=== PATIENT | male | born 1935 | race Caucasian/White ===

== ENCOUNTER 2018-05-07 08:40 | Day surgery (SDC) | payer MEDICARE, OTHER, SELFPAY ==
--- NOTE | 2018-05-07 | PATH_ITS ---
[facility] Accession Number: [id number] . 01 Material submitted: . PART A: TRANSVERSE COLON POLYPS X3 PART B: ASCENDING COLON POLYPS X2 PART C: COLON POLYP AT 40CM X2 PART D: COLON POLYP AT 25CM X2 . 02 Diagnosis: A. Biopsy Transverse Colon Polyps: Tubular adenoma involving two biopsy fragments. Single polypoid-shaped fragment of colon mucosa associated with prominent lymphoid aggregate. . B. Biopsy Ascending Colon Polyps: Tubular adenoma involving all three biopsy fragments. . C. Biopsy Colon Polyp at 40 cm: Tubular adenoma involving multiple biopsy fragments. . D. Biopsy Colon Polyps at 25 cm: Tubular adenoma involving two biopsy fragments. Single prolapsed inflammatory polyp, negative for atypia. [facility]/05/08/2018 . 02 Electronically signed: . Chris Dorman MD, Pathologist NPI- [id number] . 01 Gross description: . Received four formalin-filled containers, each labeled with the patient's name: . A. In a container labeled #1. Transverse colon polyp, are three fragments of tissue which range in size from 0.3 cm to 0.5 cm, entirely submitted in cassette A. B. In a container labeled ascending col. polyps x2, are three 0.1-0.3 cm portions of tissue, entirely submitted in cassette B. C. In a container labeled colon polyp at 40 cm x2, are multiple 0.1 cm to 0.5 cm portions of tissue, which are filtered, wrapped, and entirely submitted in cassette C. D. In a container labeled colon polyp at 25 cm x2, are four 0.2-0.5 cm portions of tissue, entirely submitted in cassette D. ([id number]) /FRR . 02 Pathologist provided ICD-10: D12.2 . 02 CPT . 000526, 684299, 152466, [id number] Performed at: 01 [facility] [address] [id number] MD Fan Rand MD Phone: [phone] Performed at: 02 [facility] [address] [place], [place] [id number] MD Carl Shukla MD Phone: [phone]
[2018-05-07 09:10] VITALS: BP 135/84; PULSE 80; RESP 18; TEMP 36.2; O2SAT 98; BMI 33.9
[2018-05-07] MEDS: SODIUM CHLORIDE 0.9% 1,000 ML 200 ML IV (09:32)
--- NOTE | 2018-05-07 09:43 | PM.HP.1 ---
History of Present Illness Date Patient Seen: 05/07/18 Time Patient Seen: 09:43 Chief complaint: [id number] SCREENING COLONOSCOPY Narrative: The patient is a gentleman here for screening colonoscopy. His last colonoscopy was over 15 years ago. He does have a history of polyps in the distant past though he does not know the details of the pathology. He has had no blood in his stool and has no family history of colon cancer Patient History Medical History Elevated cholesterol (Chronic) Essential hypertension with goal blood pressure less than 130/85 (Chronic) Surgical History History of tonsillectomy (Resolved) Family & Social History Social History: household members spouse Meds Home Medications Medication Instructions Recorded Confirmed Type calcium carbonate-vitamin D3 See Label Instructions .ROUTE 05/07/18 05/07/18 History [Calcium 600 with Vitamin D3] .COMPLEX felodipine 2.5 mg PO BID 05/07/18 05/07/18 History losartan 50 mg PO DAILY 05/07/18 05/07/18 History simvastatin [Zocor] 5 mg PO QPM 05/07/18 05/07/18 History Allergies Allergy/AdvReac Type Severity Reaction Status Date / Time No Known Drug Allergies Allergy Verified 05/07/18 09:02 Review of Systems Review of Systems All systems reviewed & are unremarkable except as noted in HPI and below Exam Vital Signs (past 8 hours): - 05/07/18 09:10 Temperature 97.2 F L Pulse Rate 80 Respiratory Rate 18 Blood Pressure 135/84 Pulse Oximetry 98 Oxygen Delivery Method Room Air Narrative Exam Narrative: Operative no apparent distress. Lungs clear no rales or rhonchi. Heart regular rate and rhythm without murmur gallop. Abdomen was protuberant soft nontender without mass. Alert and oriented x3. Assessment & Plan Plan: Assessment/Plan Narrative: Patient for a screening colonoscopy. I have discussed the procedure and the rationale with the patient including risks of bleeding, perforation which would necessitate a major operation, failure to find remove all lesions and the potential to tattoo. They appeared to understand and wished to proceed.
--- NOTE | 2018-05-07 09:46 | PM.PREOP ---
Pre-operative Note Interval Note Pre-op Check: Yes History & Physical exam performed today by Physician Changes: No ASA Class (for procedural sedation): II
[2018-05-07] MEDS: MIDAZOLAM 5 MG/5 ML VIAL IV (10:17)
[2018-05-07] MEDS: fentaNYL 250 MCG/5 ML INJ IV (10:18)
--- NOTE | 2018-05-07 10:49 | PM.OP.ENDO ---
Operative Date/Time/Diagnoses Date of procedure: 05/07/18 Time of procedure: 10:41 Pre-op diagnosis: Distant history of polyps. Screening exam. Last exam was over 15 years ago. Post-op diagnosis: same (Numerous polyps. Sigmoid diverticulosis.) Procedure & Clinicians Study performed: Colonoscopy with cold biopsy and hot snare polypectomies multiple Same procedure as scheduled: Yes Indications: Screening Surgeon: Aramis Phipps Procedure Notes SCOAP/Timeout: Performed Procedure in detail: The patient was placed in the left lateral decubitus position and underwent IV sedation directed by the surgeon consisting of fentanyl and Versed. Digital exam was unremarkable. I felt no enlargement of his prostate and no masses in it. The scope was inserted and advanced through the rectum into the sigmoid colon. The patient had diverticulosis. There was a small polyp noted on the way in that was in the transverse colon and it was snared and completely removed. I continued on into the descending, transverse, and ascending colon. The cecum was reached identified by the ileocecal valve and the appendiceal opening. The scope was gradually brought out. I encountered 2 additional Polyps at[the transverse colon. Two removed in the ascending colon. Two removed at 40 cm. And 2 were removed at 25 cm from the anal verge. With 1 or 2 exceptions all of these were snared with a hot snare. The others were removed with cold biopsy forceps. I ultimately reached the rectum]. The scope was retroflexed in the rectum. The appearance was[normal in appearance]. The scope was removed and the patient tolerated the procedure well. While the patient had numerous polyps none appeared to be malignant though most if not all of them appeared to be neoplastic. Await the pathology report. Scope withdrawal time: 35 min Sedation minutes: 51 Findings: diverticulosis (Sigmoid) and polyp (Nine polyps removed) Specimen(s): other (Polyps) Complications: none Recommendations: Colonscopy in 5 years (If in good health) Follow up: as needed Disposition: PACU
[2018-05-07 10:54] VITALS: BP 130/74; PULSE 62; RESP 20; TEMP 36.4; O2SAT 98
== END 2018-05-07 11:17 | disposition home or self-care (01) ==
PROVIDERS: Visit Provider Specialist
PROC: 0DJD8ZZ Inspection of Lower Intestinal Tract, Via Natural or Artificial Opening Endoscopic (ICD-10-PCS; CPT 45378; principal; 2018-05-07 09:45)
DX: Z12.11 Encounter for screening for malignant neoplasm of colon (principal); Z86.010 Personal history of colon polyps; E78.00 Pure hypercholesterolemia, unspecified; I10 Essential (primary) hypertension; D12.2 Benign neoplasm of ascending colon; D12.3 Benign neoplasm of transverse colon; K57.30 Diverticulosis of large intestine without perforation or abscess without bleeding
CPT/HCPCS: 45385; 45380; 88305; 99152; 99153; J2250; J3010

== ENCOUNTER → 2020-11-08 15:52 | Outpatient (CLI) | payer MEDICARE, OTHER, SELFPAY ==
[2020-11-08] MEDS: COVID-19 VACC, Ad26(JANSSEN)/PF 0.5 ML IM (16:02)
== END ==
PROVIDERS: Visit Provider Internal Medicine
DX: Z23 Encounter for immunization (principal)
CPT/HCPCS: 0031A; 91303

== ENCOUNTER → 2021-11-10 16:16 | Outpatient (CLI) | payer MEDICARE, OTHER, SELFPAY ==
--- NOTE | 2021-11-10 | DI.RAD.S_ITS ---
PROCEDURE: XR HIP W PEL IF DONE RT 2V INDICATIONS: PAIN TECHNIQUE: AP pelvis with lateral view(s) of the right hip(s). COMPARISON: None. FINDINGS: Bones: No fractures or dislocations. Symmetric appearing [id number] bilateral hip joint osteoarthritic changes are noted. No evidence of avascular necrosis of femoral head. Pelvic ring appears intact. No suspicious bony lesions. Soft tissues: The visualized bowel gas pattern is normal. Well corticated calcification adjacent to greater trochanter of right proximal femur is noted suggestive of old avulsion injury. IMPRESSION: Symmetric appearing bilateral hip joint osteoarthritis. No pelvic or hip fracture. No evidence of avascular necrosis. Dictated by: Spencer Hernandez M.D. on 11/10/2021 at 16:42 Approved by: Spencer Hernandez M.D. on 11/10/2021 at 16:43
--- NOTE | 2021-11-10 | DI.RAD.S_ITS ---
PROCEDURE: XR LUMBAR SPINE 2-3V INDICATIONS: PAIN TECHNIQUE: 3 views of the lumbar spine were acquired. COMPARISON: None. FINDINGS: Bones: 5 [id number] vertebrae are present. There is straightening of normal lumbar lordosis. Grade 1 retrolisthesis of L3 on L4 is seen. Degenerative endplate changes, loss of disc height and bilateral facet arthrosis throughout lumbar spine is seen. No vertebral body compression fractures. No suspicious bony lesions. Soft tissues: Overlying bowel gas pattern is normal. No suspicious soft tissue calcifications. IMPRESSION: Degenerative disc disease throughout lumbar spine. No acute compression fracture . Grade 1 retrolisthesis of L3 on L4. Dictated by: Spencer Hernandez M.D. on 11/10/2021 at 16:43 Approved by: Spencer Hernandez M.D. on 11/10/2021 at 16:44
== END ==
PROVIDERS: Referring Provider Family Medicine; Visit Provider Family Medicine
DX: M16.0 Bilateral primary osteoarthritis of hip (principal); M51.36 Other intervertebral disc degeneration, lumbar region; M25.551 Pain in right hip; M54.50 Low back pain, unspecified
CPT/HCPCS: 72100; 73502

== ENCOUNTER → 2023-01-03 14:27 | Outpatient (CLI) | payer MEDICARE, OTHER, SELFPAY ==
--- NOTE | 2023-01-03 | DI.RAD.S_ITS ---
PROCEDURE: XR CHEST 2V INDICATIONS: CHEST PAIN / COUGH TECHNIQUE: 2 views of the chest were acquired. COMPARISON: [facility], , CHEST 2 VIEW, 08/09/2015, 12:23. FINDINGS: Surgical changes and devices: None. Lungs and pleura: Mild patchy opacity left lung base. No pleural effusion or pneumothorax. Mediastinum: Mediastinal contours are normal. Heart size is normal. Bones and chest wall: No suspicious bony abnormalities. Soft tissues appear unremarkable. IMPRESSION: Nonspecific left basilar opacity may represent atelectasis, aspiration, or pneumonia. Dictated by: Westley Parker M.D. on 01/03/2023 at 18:18 Approved by: Westley Parker M.D. on 01/03/2023 at 18:20
== END ==
PROVIDERS: Referring Provider Internal Medicine; Visit Provider Internal Medicine
DX: R07.9 Chest pain, unspecified (principal); R05.9 Cough, unspecified
CPT/HCPCS: 71046; 93005

== ENCOUNTER → 2023-02-01 11:49 | Outpatient (CLI) | payer MEDICARE, OTHER, SELFPAY ==
--- NOTE | 2023-02-01 | DI.RAD.S_ITS ---
PROCEDURE: XR CHEST 2V INDICATIONS: Bronchopneumonia, unspecified organism TECHNIQUE: 2 views of the chest were acquired. COMPARISON: [facility], CR, XR CHEST 2V, 01/03/2023, 14:34. FINDINGS: Surgical changes and devices: None. Lungs and pleura: Left lower lobe opacity may be infiltrate, scar or atelectasis. No pleural effusions or pneumothorax. Mediastinum: Mediastinal contours are normal. Heart size is normal. Bones and chest wall: No suspicious bony abnormalities. Soft tissues appear unremarkable. IMPRESSION: Left lower lobe infiltrate, scar or atelectasis. Dictated by: Serg Mckinnon M.D. on 02/01/2023 at 13:38 Approved by: Serg Mckinnon M.D. on 02/01/2023 at 13:58
== END ==
PROVIDERS: PCP Family Medicine; Referring Provider Family Medicine; Visit Provider Family Medicine
DX: J18.0 Bronchopneumonia, unspecified organism (principal)
CPT/HCPCS: 71046

== ENCOUNTER → 2023-02-08 10:49 | Outpatient (CLI) | payer MEDICARE, OTHER, SELFPAY ==
--- NOTE | 2023-02-08 | DI.CT.S_ITS ---
PROCEDURE: CT CHEST ABD PEL W CON INDICATIONS: WEIGHT LOSS TECHNIQUE: After the administration of oral and intravenous contrast, axial sections acquired from the supraclavicular neck to the pubic symphysis. Coronal and sagittal reformats were performed. For radiation dose reduction, the following was used: automated exposure control, adjustment of mA and/or kV according to patient size. COMPARISON: None. FINDINGS: Image quality: Excellent. CHEST: Lower Neck: No enlarged lymph nodes. Thyroid: Within normal limits. Axillae: No enlarged lymph nodes. Chest Wall: Unremarkable. Lungs and Airways: Scattered calcified granuloma. No consolidation. Pleura: No pneumothorax or pleural effusions. Heart: Heart size is normal. No pericardial effusion. Thoracic Vessels: The aorta and pulmonary arteries demonstrate normal size. Mediastinum and [place]: No enlarged lymph nodes. Esophagus: No wall thickening. No hiatal hernia. ABDOMEN: Liver: Hepatic cysts. Focus of hyperattenuation along the gallbladder fossa, probably focal fat sparing. Gallbladder: Cholelithiasis without wall thickening or adjacent fat stranding to suggest acute cholecystitis. Biliary ducts: Unremarkable. Pancreas: Unremarkable. Spleen: The spleen is massive, measuring 18.0 x 11 x 16.0 centimeter. Along the periphery of the spleen, there is a 6.7 centimeter region of wedge-shaped hypoattenuation. Adrenal Glands: Unremarkable. Kidneys and Ureters: Unremarkable. Stomach and Bowel: Stomach, small bowel loops, and colon are unremarkable. Peritoneum: No abnormal intraperitoneal fluid. No free air. Ventral Wall: No hernia. Abdominal Nodes: No retroperitoneal or mesenteric adenopathy by size criteria. Vessels: Aorta and inferior vena cava are normal in size. PELVIS: Pelvic Organs: Unremarkable. Bladder: Unremarkable. Pelvic Nodes: No enlarged lymph nodes. Miscellaneous: Fat within the left inguinal canal. Bones: Age indeterminate transverse fracture through the middle vertebral body of L1. IMPRESSION: 1. Massive splenomegaly, measuring 1867 milliliter (normal 315 milliliter). Associated peripheral infarcts. Findings are highly concerning for lymphoma. 2. Age indeterminate transverse fracture through the middle vertebral body of L1, likely incomplete burst fracture. No endplate retropulsion. Correlate with history of trauma. Dictated by: Maxwell Parekh M.D. on 02/08/2023 at 15:35 Approved by: Maxwell Parekh M.D. on 02/08/2023 at 15:40
[2023-02-08 11:22] LABS: Hematocrit 33.2 % (41-53); Hemoglobin 11.1 g/dL (13.5-17.5); Mean Corpuscular HGB Conc 33.6 % (30-36); Mean Corpuscular Hemoglobin 26.7 PG (26-34); Mean Corpuscular Volume 79.6 fL (80-100); Platelet Count 38 X10^3/uL (150-400); Red Blood Cell Count 4.17 X10^6/uL (4.5-5.9); Red Cell Distribution Width 18.3 % (11.6-14.8); White Blood Cell Count 4.5 X10^3/uL (4.5-11.0)
[2023-02-08 11:30] LABS: Alanine Aminotransferase 26 IU/L (<50); Albumin 2.6 g/dL (3.5-5.0); Albumin Globulin Ratio 0.8 (1.0-2.8); Alkaline Phosphatase 471 U/L (38-126); Amylase 72 U/L (30-110); Aspartate Aminotransferase 70 IU/L (17-59); BUN Creatinine Ratio 25.2 (6-22); Bilirubin Total 1.5 mg/dL (0.2-1.3); Blood Urea Nitrogen 35 mg/dL (9-20); Calcium 7.5 mg/dL (8.4-10.2); Carbon Dioxide 22 mmol/L (22-32); Chloride 106 mmol/L (98-107); Estimated Glomerular Filt Rate 49 mL/min (>60); Globulin 3.1 g/dL (1.7-4.1); Glucose 96 mg/dL (80-110); HEMOLYSIS < 15 (0-50); Lipase 126 U/L (23-300); Potassium 3.5 mmol/L (3.4-5.1); Sodium 136 mmol/L (137-145); Total Protein 5.7 g/dL (6.3-8.2)
[2023-02-08 11:31] LABS: Add Manual Diff / Slide Review YES
[2023-02-08 11:53] LABS: Neutrophils Absolute Manual 2700 /uL (3000-5900); Total Cells Counted 100
[2023-02-08 11:54] LABS: Anisocytosis 1+; Platelet Estimate Decreased on smear; Target Cells 1+
[2023-02-08 12:26] LABS: Free T4, Direct Thyroxine 1.42 ng/dL (0.78-2.19)
[2023-02-09 08:41] LABS: T4 Total Thyroxine 6.87 ug/dL (5.5-11.0); T7 (Free Thyroxine Index) 3.26 (1.65-3.89); Triiodothryronine T3 Uptake 47.4 % (23.5-40.5)
== END ==
PROVIDERS: PCP Family Medicine; Referring Provider Family Medicine; Visit Provider Family Medicine
DX: R07.9 Chest pain, unspecified (principal); K76.0 Fatty (change of) liver, not elsewhere classified; J15.9 Unspecified bacterial pneumonia; K80.20 Calculus of gallbladder without cholecystitis without obstruction; M48.46XA Fatigue fracture of vertebra, lumbar region, initial encounter for fracture; R16.1 Splenomegaly, not elsewhere classified; R63.4 Abnormal weight loss; Z79.899 Other long term (current) drug therapy
CPT/HCPCS: 36415; 71260; 74177; 80053; 82150; 83690; 84436; 84439; 84443; 84479; 85007; 85025; Q9967

== ENCOUNTER 2023-02-12 13:45 | Emergency (ER) | payer MEDICARE, OTHER, SELFPAY ==
[2023-02-12] VITALS (77 sets, daily range): BP systolic 87–127; BP diastolic 48–66; PULSE 70–122; RESP 18–41; TEMP 34.7–39.3; O2SAT 69–99; BMI 23.1
--- NOTE | 2023-02-12 13:55 | PC.NURSE ---
1355: Per EMS, pt POC glucose 48 at home. Gave approx 125ml D10. POC glucose on arrival to ED=86.
--- NOTE | 2023-02-12 14:09 | DI.RAD.S_ITS ---
PROCEDURE: XR CHEST 1V INDICATIONS: suspected sepsis TECHNIQUE: One view of the chest was acquired. COMPARISON: [facility], CR, XR CHEST 2V, 02/01/2023, 11:47. FINDINGS: Surgical changes and devices: None. Lungs and pleura: Lungs are clear. No pleural effusions or pneumothorax. Mediastinum: Mediastinal contours appear normal. Heart size is normal. Bones and chest wall: No suspicious bony lesions. Overlying soft tissues appear unremarkable. IMPRESSION: No acute pulmonary process. Dictated by: Nina Medellin M.D. on 02/12/2023 at 15:17 Approved by: Nina Medellin M.D. on 02/12/2023 at 15:17
--- NOTE | 2023-02-12 14:10 | DI.CT.S_ITS ---
PROCEDURE: CT HEAD/BRAIN WO CON INDICATIONS: trauma, right hip pain TECHNIQUE: Noncontrast 4.5 mm thick angled axial sections acquired from the foramen magnum to the vertex, with coronal and sagittal reformats. For radiation dose reduction, the following was used: automated exposure control, adjustment of mA and/or kV according to patient size. COMPARISON: None. FINDINGS: Image quality: Excellent. CSF spaces: Basal cisterns are patent. No extra-axial fluid collections. The ventricles are symmetric in size and shape. Brain: No intracranial bleeds or masses. There is cerebral volume loss for age, with resultant ventricular and sulcal prominence. There are periventricular and deep white matter chronic small vessel ischemic changes. There is intracranial internal carotid artery atherosclerosis. Skull and face: Calvarium and visualized facial bones appear intact, without suspicious lesions. Sinuses: Visualized sinuses and mastoids are clear. IMPRESSION: 1. No acute intracranial process. 2. Moderate atrophy and chronic microvascular ischemic changes. Dictated by: Nina Medellin M.D. on 02/12/2023 at 15:01 Approved by: Nina Medellin M.D. on 02/12/2023 at 15:02
--- NOTE | 2023-02-12 14:10 | DI.RAD.S_ITS ---
PROCEDURE: XR HIP W PEL IF DONE RT 2V INDICATIONS: trauma, right hip pain TECHNIQUE: AP pelvis with lateral view(s) of the right hip(s). COMPARISON: [facility], , XR HIP W PEL IF DONE RT 2V, 11/10/2021, 16:12. FINDINGS: Bones: No fractures or dislocations. Pelvic ring appears intact. No suspicious bony lesions. Soft tissues: The visualized bowel gas pattern is normal. No suspicious soft tissue calcifications. Right hip calcific tendinitis is present. IMPRESSION: No visualized acute fracture or dislocation. However, if clinical concern and/or pain persist, short interval imaging followup in 7-10 days is recommended, as occult injury cannot be definitively excluded. Dictated by: Nina Medellin M.D. on 02/12/2023 at 15:18 Approved by: Nina Medellin M.D. on 02/12/2023 at 15:18
--- NOTE | 2023-02-12 14:10 | DI.CT.S_ITS ---
PROCEDURE: CT CERVICAL SPINE WO CON INDICATIONS: trauma, right hip pain TECHNIQUE: Noncontrast 3 mm thick sections acquired from the skull base to the T4 level. Sagittal and coronal reformats were then constructed. For radiation dose reduction, the following was used: automated exposure control, adjustment of mA and/or kV according to patient size. COMPARISON: None. FINDINGS: Image quality: Excellent. Bones: No fractures or dislocations. Visualized superior ribs are intact. Multilevel degenerative changes are present. Multilevel bridging anterior osteophytes are present. Soft tissues: Prevertebral soft tissues are normal in thickness. No paravertebral hematomas. No apical pneumothoraces. IMPRESSION: Multilevel degenerative changes without visualized fracture. Dictated by: Nina Medellin M.D. on 02/12/2023 at 15:02 Approved by: Nina Medellin M.D. on 02/12/2023 at 15:03
[2023-02-12 14:21] LABS: INR 1.8 (0.9-1.3); Prothrombin Time 20.4 SECONDS (10.1-12.7)
[2023-02-12 14:24] LABS: Hematocrit 34.6 % (41-53); Hemoglobin 11.1 g/dL (13.5-17.5); Mean Corpuscular Hemoglobin 26.6 PG (26-34); Mean Corpuscular Volume 82.9 fL (80-100); PTT Partial Thromboplastin Tim 32 SECONDS (26-36); Red Blood Cell Count 4.17 X10^6/uL (4.5-5.9); Red Cell Distribution Width 19.4 % (11.6-14.8)
[2023-02-12 14:27] LABS: Albumin 2.4 g/dL (3.5-5.0); Albumin Globulin Ratio 0.8 (1.0-2.8); Alkaline Phosphatase 268 U/L (38-126); Aspartate Aminotransferase 104 IU/L (17-59); BUN Creatinine Ratio 21.1 (6-22); Bilirubin Total 1.7 mg/dL (0.2-1.3); Blood Urea Nitrogen 67 mg/dL (9-20); Calcium 7.2 mg/dL (8.4-10.2); Chloride 111 mmol/L (98-107); Creatine Kinase 26 U/L (55-170); Estimated Glomerular Filt Rate 18 mL/min (>60); Globulin 3.1 g/dL (1.7-4.1); Glucose 97 mg/dL (80-110); Lipase 228 U/L (23-300); Potassium 4.1 mmol/L (3.4-5.1); Sodium 142 mmol/L (137-145); Total Protein 5.5 g/dL (6.3-8.2)
[2023-02-12 14:29] LABS: Add Manual Diff / Slide Review YES; Lactate (Lactic Acid) 10.8 mmol/L (0.7-2.1)
[2023-02-12 14:33] LABS: Alanine Aminotransferase 46 IU/L (<50); HEMOLYSIS 18 (0-50)
--- NOTE | 2023-02-12 14:37 | DI.CT.S_ITS ---
PROCEDURE: CT CHEST ABD PEL WO CON INDICATIONS: Fall/trauma TECHNIQUE: After the administration of oral contrast, 5 mm thick sections acquired from the lung apices to the symphysis pubis. 5 mm thick coronal and sagittal reformats acquired, with additional 7 mm coronal MIP reformats through the lungs. For radiation dose reduction, the following was used: automated exposure control, adjustment of mA and/or kV according to patient size. COMPARISON: [facility], CT, CT CHEST ABD PEL W CON, 02/08/2023, 12:37. FINDINGS: Image quality: Excellent. CHEST: Lungs and pleura: No acute pulmonary opacities. No pleural effusions or pneumothorax. Central and peripheral airways are patent are normal in caliber. Multiple bilateral pulmonary nodules, some demonstrating partial calcification are unchanged. Mediastinum: Heart size is normal. No pericardial effusion. No mediastinal adenopathy by CT size criteria. Thoracic aorta and central pulmonary arteries are normal in size. Esophagus is normal in caliber. No hiatal hernia. Chest wall: No axillary or supraclavicular adenopathy by size criteria. Thyroid gland is unremarkable . ABDOMEN: Solid organs: Liver is normal in size. Multiple simple hepatic cysts are stable. Hepatic steatosis is present. Gallbladder demonstrates small dependent luminal calcifications without wall thickening, unchanged . Pancreas is normal in contours. Spleen remains markedly enlarged with areas of low attenuation, unchanged. No adrenal nodules. Both kidneys are normal in size, without hydronephrosis or nephrolithiasis. Peritoneum and bowel: Small and large bowel loops are normal in caliber and wall thickness. No free fluid or air. Nodes and vessels: No retroperitoneal or mesenteric adenopathy by size criteria. Aorta and inferior vena cava are normal in size. Miscellaneous: No ventral hernias. PELVIS: Genitourinary: Bladder wall thickness is normal. Miscellaneous: Fat containing inguinal hernias are present. Bones: No suspicious bony lesions. Unchanged appearance of L1 fracture. IMPRESSION: No acute osseous or visceral traumatic injury. Appearance of L1 fracture is unchanged compared to prior exam and otherwise indeterminate in age. Unchanged appearance of marked splenomegaly with areas of low attenuation. The latter are better delineated on prior exam of 02/08/2023. Dictated by: Nina Medellin M.D. on 02/12/2023 at 15:03 Approved by: Nina Medellin M.D. on 02/12/2023 at 15:12
[2023-02-12 14:39] LABS: Carbon Dioxide 8 mmol/L (22-32); NT-proBNP (BNP-Adult 18+) 5770 pg/mL (<450); Troponin I 0.014 ng/mL (0.01-0.034)
[2023-02-12 14:43] LABS: Procalcitonin 3.05 ng/mL (<0.5)
[2023-02-12 14:45] LABS: Neutrophils Absolute Manual 8030 /uL (3000-5900); Total Cells Counted 100
[2023-02-12 14:46] LABS: Anisocytosis 1+; Nucleated Red Blood Cells 1 #/Diff; Platelet Estimate Decreased on smear; Poikilocytosis 1+
[2023-02-12 14:48] LABS: Platelet Count 23 X10^3/uL (150-400)
--- NOTE | 2023-02-12 15:04 | ED_ITS ---
HPI - Fall <Nathan Chi MD - Last Filed: 02/13/23 07:21> General Chief Complaint: Fall Stated Complaint: Fall, R hip px, low glucose @ 48 Time Seen by Provider: 02/12/23 14:33 Source: patient Mode of arrival: EMS History of Present Illness HPI Narrative: Patient brought in by ambulance from home for complaints of generalized weakness weight loss and fall. Patient fell today trying to go to the bathroom. He was home alone. Family return to find him on the floor. Complains of right hip pain. Patient has had a 40 lb weight loss in the past 2 months. Primary care started seeing him this month. CT imaging blood work done on February 08. CT imaging chest abdomen pelvis concerning for lymphoma. Laboratory studies concerning for thrombocytopenia. Patient has had very little oral intake for the past 2 weeks. Feeling weak and tired and dehydrated. Has decreased urine output. Denies any chest pain or dyspnea Related Data Home Medications Medication Instructions Recorded Confirmed calcium carbonate 600 mg-vitamin See Rx Instructions .Route .COMPLEX 05/07/18 05/07/18 D3 10 mcg (400 unit) capsule (Calcium 600 with Vitamin D3) felodipine 2.5 mg tablet,extended 2.5 mg PO BID 05/07/18 05/07/18 release 24 hr losartan 50 mg tablet 50 mg PO DAILY 05/07/18 05/07/18 simvastatin 10 mg tablet (Zocor) 5 mg PO QPM 05/07/18 05/07/18 Allergies Allergy/AdvReac Type Severity Reaction Status Date / Time No Known Drug Allergies Allergy Verified 05/07/18 09:02 Review of Systems <Nathan Chi MD - Last Filed: 02/13/23 07:21> Review of Systems Narrative: GENERAL: negative chills, positive fatigue, malaise, and weight loss, negative fever, sweats. HEENT: negative sinus pain, ear pain, sore throat RESPIRATORY: negative dyspnea, cough CARDIOVASCULAR: negative chest pain, palpitations GASTROINTESTINAL: negative nausea, vomiting, abdominal pain : negative dysuria, frequency, hematuria MUSCULOSKELETAL: Positive muscle or bony pain SKIN: negative rash, skin lesions NEUROLOGIC: negative weakness, numbness ROS Unobtainable: All systems reviewed & are unremarkable except as noted in HPI and below Patient History <Nathan Chi MD - Last Filed: 02/13/23 07:21> Medical History Elevated cholesterol Essential hypertension with goal blood pressure less than 130/85 Surgical History History of tonsillectomy Social History household members: spouse Smoking Status: Former smoker Smoking Status: Former smoker alcohol intake frequency: a few times a month Substance Use Type: does not use Exam <Nathan Chi MD - Last Filed: 02/13/23 07:21> Narrative Exam Narrative: GENERAL: in no distress, not toxic not dyspneic HEAD: Normocephalic. EYES: Pupils equal round, pale conjunctiva ENT: Mucous membranes moist. NECK: Trachea midline. CARDIOVASCULAR: Regular rate and rhythm without murmurs RESPIRATORY: Clear to auscultation. Breath sounds equal bilaterally. No wheezes, rales, or rhonchi. GASTROINTESTINAL: Abdomen soft, non-tender EXTREMITIES: No gross deformities. Tenderness to the right hip. No shortening or rotation of the right leg. BACK: No flank tenderness. NEURO: AOx4. SKIN: Warm and dry PSYCH: Not anxious, is cooperative Initial Vital Signs Initial Vital Signs: Vital Signs Pulse Rate 120 H 02/12/23 13:52 Blood Pressure 124/60 02/12/23 13:52 Pulse Oximetry 92 02/12/23 13:52 <Pietro Merritt DO - Last Filed: 02/13/23 01:47> Initial Vital Signs Initial Vital Signs: Vital Signs Pulse Rate 120 H 02/12/23 13:52 Blood Pressure 124/60 02/12/23 13:52 Pulse Oximetry 92 02/12/23 13:52 Course <Nathan Chi MD - Last Filed: 02/13/23 07:21> Orders Ordered: Discontinued Medications Acetaminophen (Acetaminophen 325 Mg Tablet) 975 mg PO NOW ONE Stop: 02/12/23 14:37 Last Admin: 02/12/23 15:32 Dose: 975 mg Documented By: Sodium Chloride (Normal Saline 0.9%) 1,000 mls @ 1,000 mls/hr IV BOLUS ONE Stop: 02/12/23 15:08 Last Infusion: 02/12/23 16:30 Dose: 0 mls/hr Documented By: Admin: 02/12/23 15:27 Dose: 1,000 mls/hr Documented By: Piperacillin Sod/Tazobactam (Sod 4.5 gm/ Sodium Chloride) 100 mls @ 200 mls/hr IV NOW ONE Stop: 02/12/23 14:35 Last Infusion: 02/12/23 15:56 Dose: 0 mls/hr Documented By: Admin: 02/12/23 15:26 Dose: 200 mls/hr Documented By: Sodium Bicarbonate 100 meq/ (Dextrose) 1,100 mls @ 150 mls/hr IV CONT ZEV Last Infusion: 02/12/23 23:32 Dose: 0 mls/hr Documented By: Infusion: 02/12/23 23:00 Dose: 0 mls/hr Documented By: Admin: 02/12/23 15:59 Dose: 150 mls/hr Documented By: WERNER Piperacillin Sod/Tazobactam (Sod 3.375 gm/ Sodium Chloride) 100 mls @ 25 mls/hr IV Q8H ZEV Piperacillin Sod/Tazobactam (Sod 3.375 gm/ Sodium Chloride) 100 mls @ 25 mls/hr IV Q12H ZEV Piperacillin Sod/Tazobactam (Sod 3.375 gm/ Sodium Chloride) 100 mls @ 25 mls/hr IV Q8H ZEV Last Infusion: 02/13/23 01:31 Dose: 0 mls/hr Documented By: Admin: 02/12/23 22:06 Dose: 25 mls/hr Documented By: POTASSIUM CHLORIDE IN WATER (Potassium Cl 10 Meq/100 Ml Yasmin) 10 meq in 100 mls @ 100 mls/hr IV Q1H ZEV Stop: 02/13/23 01:14 Last Infusion: 02/13/23 01:32 Dose: 0 mls/hr Documented By: Admin: 02/13/23 00:57 Dose: 100 mls/hr Documented By: Infusion: 02/13/23 00:57 Dose: 100 mls/hr Documented By: Admin: 02/13/23 00:03 Dose: 100 mls/hr Documented By: Infusion: 02/12/23 23:59 Dose: 100 mls/hr Documented By: Admin: 02/12/23 22:59 Dose: 100 mls/hr Documented By: Infusion: 02/12/23 22:52 Dose: 0 mls/hr Documented By: Admin: 02/12/23 21:44 Dose: 100 mls/hr Documented By: Calcium Gluconate 4.65 meq/ (Sodium Chloride) 60 mls @ 180 mls/hr IV NOW ONE Stop: 02/12/23 21:32 Last Infusion: 02/12/23 22:03 Dose: 0 mls/hr Documented By: Admin: 02/12/23 21:33 Dose: 180 mls/hr Documented By: Sodium Chloride (Normal Saline 0.9%) 500 mls @ 500 mls/hr IV BOLUS ONE Stop: 02/12/23 22:13 Last Infusion: 02/12/23 22:07 Dose: 0 mls/hr Documented By: Admin: 02/12/23 21:29 Dose: 500 mls/hr Documented By: Sodium Chloride (Normal Saline 0.9%) 1,000 mls @ 500 mls/hr IV BOLUS ONE Stop: 02/13/23 02:47 Last Infusion: 02/13/23 01:32 Dose: 0 mls/hr Documented By: Admin: 02/13/23 00:53 Dose: 500 mls/hr Documented By: ROX Ondansetron HCl (Ondansetron 4 Mg/2 Ml Inj) 4 mg IV NOW PRN PRN Reason: Nausea And Vomiting Last Admin: 02/12/23 15:26 Dose: 4 mg Documented By: Ondansetron HCl (Ondansetron 4 Mg Odt) 4 mg SL NOW PRN PRN Reason: Nausea And Vomiting Vital Signs Vital signs: Vital Signs - 8 hr 02/12/23 23:30 02/12/23 23:30 02/12/23 23:45 Temperature 94.8 F L Pulse Rate 72 Respiratory Rate 24 Blood Pressure 90/49 L 87/59 L Pulse Oximetry 95 02/12/23 23:45 02/13/23 00:00 02/13/23 00:00 Temperature 94.8 F L 94.8 F L Pulse Rate 74 74 Respiratory Rate 23 28 H Blood Pressure 108/52 L Pulse Oximetry 96 96 02/13/23 00:15 02/13/23 00:15 02/13/23 00:30 Temperature 95.0 F L Pulse Rate 81 Respiratory Rate 28 H Blood Pressure 98/51 L 93/52 L Pulse Oximetry 96 02/13/23 00:30 02/13/23 00:45 02/13/23 00:45 Temperature 95.0 F L 95.2 F L Pulse Rate 89 98 H Respiratory Rate 31 H 31 H Blood Pressure 80/44 L Pulse Oximetry 96 92 02/13/23 00:46 02/13/23 00:46 02/13/23 01:00 Temperature 95.2 F L Pulse Rate 90 Respiratory Rate 29 H Blood Pressure 86/48 L 91/48 L Pulse Oximetry 96 02/13/23 01:00 02/13/23 01:15 02/13/23 01:15 Temperature 95.2 F L 95.2 F L Pulse Rate 74 89 Respiratory Rate 28 H 25 H Blood Pressure 90/49 L Pulse Oximetry 96 98 02/13/23 01:30 02/13/23 01:30 02/13/23 01:31 Temperature 95.4 F L Pulse Rate 97 H Respiratory Rate 28 H Blood Pressure 95/53 L 90/52 L Pulse Oximetry 98 02/13/23 01:31 02/13/23 01:42 Temperature 95.4 F L 95.7 F L Pulse Rate 99 H 79 Respiratory Rate 30 H 32 H Blood Pressure 90/52 L Pulse Oximetry 98 <Pietro Merritt DO - Last Filed: 02/13/23 01:47> Orders Ordered: Discontinued Medications Acetaminophen (Acetaminophen 325 Mg Tablet) 975 mg PO NOW ONE Stop: 02/12/23 14:37 Last Admin: 02/12/23 15:32 Dose: 975 mg Documented By: Sodium Chloride (Normal Saline 0.9%) 1,000 mls @ 1,000 mls/hr IV BOLUS ONE Stop: 02/12/23 15:08 Last Infusion: 02/12/23 16:30 Dose: 0 mls/hr Documented By: Admin: 02/12/23 15:27 Dose: 1,000 mls/hr Documented By: Piperacillin Sod/Tazobactam (Sod 4.5 gm/ Sodium Chloride) 100 mls @ 200 mls/hr IV NOW ONE Stop: 02/12/23 14:35 Last Infusion: 02/12/23 15:56 Dose: 0 mls/hr Documented By: Admin: 02/12/23 15:26 Dose: 200 mls/hr Documented By: Sodium Bicarbonate 100 meq/ (Dextrose) 1,100 mls @ 150 mls/hr IV CONT ZEV Last Infusion: 02/12/23 23:32 Dose: 0 mls/hr Documented By: Infusion: 02/12/23 23:00 Dose: 0 mls/hr Documented By: Admin: 02/12/23 15:59 Dose: 150 mls/hr Documented By: KM Piperacillin Sod/Tazobactam (Sod 3.375 gm/ Sodium Chloride) 100 mls @ 25 mls/hr IV Q8H ZEV Piperacillin Sod/Tazobactam (Sod 3.375 gm/ Sodium Chloride) 100 mls @ 25 mls/hr IV Q12H ZEV Piperacillin Sod/Tazobactam (Sod 3.375 gm/ Sodium Chloride) 100 mls @ 25 mls/hr IV Q8H ZEV Last Infusion: 02/13/23 01:31 Dose: 0 mls/hr Documented By: Admin: 02/12/23 22:06 Dose: 25 mls/hr Documented By: POTASSIUM CHLORIDE IN WATER (Potassium Cl 10 Meq/100 Ml Yasmin) 10 meq in 100 mls @ 100 mls/hr IV Q1H ZEV Stop: 02/13/23 01:14 Last Infusion: 02/13/23 01:32 Dose: 0 mls/hr Documented By: Admin: 02/13/23 00:57 Dose: 100 mls/hr Documented By: Infusion: 02/13/23 00:57 Dose: 100 mls/hr Documented By: Admin: 02/13/23 00:03 Dose: 100 mls/hr Documented By: Infusion: 02/12/23 23:59 Dose: 100 mls/hr Documented By: Admin: 02/12/23 22:59 Dose: 100 mls/hr Documented By: Infusion: 02/12/23 22:52 Dose: 0 mls/hr Documented By: Admin: 02/12/23 21:44 Dose: 100 mls/hr Documented By: Calcium Gluconate 4.65 meq/ (Sodium Chloride) 60 mls @ 180 mls/hr IV NOW ONE Stop: 02/12/23 21:32 Last Infusion: 02/12/23 22:03 Dose: 0 mls/hr Documented By: Admin: 02/12/23 21:33 Dose: 180 mls/hr Documented By: Sodium Chloride (Normal Saline 0.9%) 500 mls @ 500 mls/hr IV BOLUS ONE Stop: 02/12/23 22:13 Last Infusion: 02/12/23 22:07 Dose: 0 mls/hr Documented By: Admin: 02/12/23 21:29 Dose: 500 mls/hr Documented By: Sodium Chloride (Normal Saline 0.9%) 1,000 mls @ 500 mls/hr IV BOLUS ONE Stop: 02/13/23 02:47 Last Infusion: 02/13/23 01:32 Dose: 0 mls/hr Documented By: Admin: 02/13/23 00:53 Dose: 500 mls/hr Documented By: ROX Ondansetron HCl (Ondansetron 4 Mg/2 Ml Inj) 4 mg IV NOW PRN PRN Reason: Nausea And Vomiting Last Admin: 02/12/23 15:26 Dose: 4 mg Documented By: Ondansetron HCl (Ondansetron 4 Mg Odt) 4 mg SL NOW PRN PRN Reason: Nausea And Vomiting Vital Signs Vital signs: Vital Signs - 8 hr 02/12/23 23:30 02/12/23 23:30 02/12/23 23:45 Temperature 94.8 F L Pulse Rate 72 Respiratory Rate 24 Blood Pressure 90/49 L 87/59 L Pulse Oximetry 95 02/12/23 23:45 02/13/23 00:00 02/13/23 00:00 Temperature 94.8 F L 94.8 F L Pulse Rate 74 74 Respiratory Rate 23 28 H Blood Pressure 108/52 L Pulse Oximetry 96 96 02/13/23 00:15 02/13/23 00:15 02/13/23 00:30 Temperature 95.0 F L Pulse Rate 81 Respiratory Rate 28 H Blood Pressure 98/51 L 93/52 L Pulse Oximetry 96 02/13/23 00:30 02/13/23 00:45 02/13/23 00:45 Temperature 95.0 F L 95.2 F L Pulse Rate 89 98 H Respiratory Rate 31 H 31 H Blood Pressure 80/44 L Pulse Oximetry 96 92 02/13/23 00:46 02/13/23 00:46 02/13/23 01:00 Temperature 95.2 F L Pulse Rate 90 Respiratory Rate 29 H Blood Pressure 86/48 L 91/48 L Pulse Oximetry 96 02/13/23 01:00 02/13/23 01:15 02/13/23 01:15 Temperature 95.2 F L 95.2 F L Pulse Rate 74 89 Respiratory Rate 28 H 25 H Blood Pressure 90/49 L Pulse Oximetry 96 98 02/13/23 01:30 02/13/23 01:30 02/13/23 01:31 Temperature 95.4 F L Pulse Rate 97 H Respiratory Rate 28 H Blood Pressure 95/53 L 90/52 L Pulse Oximetry 98 02/13/23 01:31 02/13/23 01:42 Temperature 95.4 F L 95.7 F L Pulse Rate 99 H 79 Respiratory Rate 30 H 32 H Blood Pressure 90/52 L Pulse Oximetry 98 MDM - Fall <Nathan Chi MD - Last Filed: 02/13/23 07:21> Lab Data 02/12/23 20:30 02/12/23 20:30 Labs: Lab Results 02/12/23 02/12/23 02/12/23 Range/Units 14:00 14:10 14:10 WBC 11.0 (4.5-11.0) X10^3/uL RBC 4.17 L (4.5-5.9) X10^6/uL Hgb 11.1 L (13.5-17.5) g/dL Hct 34.6 L (41-53) % MCV 82.9 D (80-100) fL MCH 26.6 (26-34) PG MCHC 32.0 (30-36) % RDW 19.4 H (11.6-14.8) % Plt Count 23 L* (150-400) X10^3/uL Neut % (Auto) Not Reportable Lymph % (Auto) Not Reportable Stephenson % (Auto) Not Reportable Eos % (Auto) Not Reportable Baso % (Auto) Not Reportable Neut # (Auto) (4411-8766) /uL Lymph # (Auto) Not Reportable Stephenson # (Auto) Not Reportable Eos # (Auto) (0-450) /uL Baso # (Auto) Not Reportable Total Counted 100 Seg Neutrophils % 73.0 H (38-70) % Lymphocytes % (Manual) 22.0 L (25-45) % Monocytes % (Manual) 4.0 (2-11) % Metamyelocytes % 1.0 H (-0) % Neutrophils # (Manual) 8030 H (0328-8274) /uL Nucleated RBCs 1 H ( - 0) #/Diff Platelet Estimate Decreased on smear RBC Morphology See below Poikilocytosis 1+ H Anisocytosis 1+ H PT 20.4 H (10.1-12.7) SECONDS INR 1.8 H (0.9-1.3) APTT 32 (26-36) SECONDS Fibrinogen (211-428) mg/dL D-Dimer (<500) ng/ml Sodium (137-145) mmol/L Potassium (3.4-5.1) mmol/L Chloride (98-107) mmol/L Carbon Dioxide (22-32) mmol/L BUN (9-20) mg/dL Creatinine (0.66-1.25) mg/dL Estimated GFR (>60) mL/min BUN/Creatinine Ratio (6-22) Glucose (80-110) mg/dL Lactate (0.7-2.1) mmol/L Calcium (8.4-10.2) mg/dL Magnesium (1.6-2.3) mg/dL Total Bilirubin (0.2-1.3) mg/dL AST (17-59) IU/L ALT (<50) IU/L Alkaline Phosphatase (38-126) U/L Total Creatine Kinase (55-170) U/L CK-MB (CK-2) CK-MB (CK-2) Rel Index Troponin I (0.01-0.034) ng/mL NT-Pro-B Natriuret Pep (<450) pg/mL Total Protein (6.3-8.2) g/dL Albumin (3.5-5.0) g/dL Globulin (1.7-4.1) g/dL Albumin/Globulin Ratio (1.0-2.8) Lipase (23-300) U/L Procalcitonin (<0.5) ng/mL Urine Color Urine Appearance Urine pH (4.5-8.0) Ur Specific [place] (1.000-1.035) Urine Protein (Negative) Urine Glucose (UA) (Negative) g/dL Urine Ketones (NEGATIVE) Urine Occult Blood (Negative) Urine Nitrate (Negative) Urine Bilirubin (NEGATIVE) Urine Urobilinogen (0.2) E.U./dL Ur Leukocyte Esterase (NEGATIVE) Urine RBC (0-5/HPF) Urine WBC (0-5/HPF) Ur Squamous Epith Cells (0-5/HPF) Amorphous Sediment Urine Bacteria (None) Ur Culture Indicated? Chlamy pneumoniae PCR Not detected (Not Detect) Adenovirus (PCR) Not detected (Not Detect) B. pertussis DNA (PCR) Not detected (Not Detecte) B.parapertussis DNA PCR Not detected (Not Detecte) Coronavirus OC43 (PCR) Not detected (Not Detect) Coronavirus HKU1 (PCR) Not detected (Not Detect) Coronavirus 229E (PCR) Not detected (Not Detect) SARS-CoV-2 (PCR) Not detected (Not Detecte) Coronavirus NL63 (PCR) Not detected (Not Detect) Human Metapneumovir PCR Not detected (Not Detect) Influenza Type A (PCR) Not detected (Not Detect) Influenza Type B (PCR) Not detected (Not Detect) M. pneumoniae (PCR) Not detected (Not Detect) Parainfluenza 1 (PCR) Not detected (Not Detect) Parainfluenza 2 (PCR) Not detected (Not Detect) Parainfluenza 3 (PCR) Not detected (Not Detect) Parainfluenza 4 (PCR) Not detected (Not Detect) RSV (PCR) Not detected (Not Detect) Entero/Rhino (PCR) Not detected (Not Detect) Blood Type Antibody Screen 02/12/23 02/12/23 02/12/23 Range/Units 14:10 14:10 15:15 WBC (4.5-11.0) X10^3/uL RBC (4.5-5.9) X10^6/uL Hgb (13.5-17.5) g/dL Hct (41-53) % MCV (80-100) fL MCH (26-34) PG MCHC (30-36) % RDW (11.6-14.8) % Plt Count (150-400) X10^3/uL Neut % (Auto) Lymph % (Auto) Stephenson % (Auto) Eos % (Auto) Baso % (Auto) Neut # (Auto) (1220-0129) /uL Lymph # (Auto) Stephenson # (Auto) Eos # (Auto) (0-450) /uL Baso # (Auto) Total Counted Seg Neutrophils % (38-70) % Lymphocytes % (Manual) (25-45) % Monocytes % (Manual) (2-11) % Metamyelocytes % (-0) % Neutrophils # (Manual) (9729-8223) /uL Nucleated RBCs ( - 0) #/Diff Platelet Estimate RBC Morphology Poikilocytosis Anisocytosis PT (10.1-12.7) SECONDS INR (0.9-1.3) APTT (26-36) SECONDS Fibrinogen (211-428) mg/dL D-Dimer (<500) ng/ml Sodium 142 (137-145) mmol/L Potassium 4.1 (3.4-5.1) mmol/L Chloride 111 H (98-107) mmol/L Carbon Dioxide 8 L* (22-32) mmol/L BUN 67 H (9-20) mg/dL Creatinine 3.18 H (0.66-1.25) mg/dL Estimated GFR 18 L (>60) mL/min BUN/Creatinine Ratio 21.1 (6-22) Glucose 97 (80-110) mg/dL Lactate 10.8 H* (0.7-2.1) mmol/L Calcium 7.2 L (8.4-10.2) mg/dL Magnesium (1.6-2.3) mg/dL Total Bilirubin 1.7 H (0.2-1.3) mg/dL AST 104 H (17-59) IU/L ALT 46 (<50) IU/L Alkaline Phosphatase 268 H (38-126) U/L Total Creatine Kinase 26 L (55-170) U/L CK-MB (CK-2) TNP CK-MB (CK-2) Rel Index TNP Troponin I 0.014 (0.01-0.034) ng/mL NT-Pro-B Natriuret Pep 5770 H (<450) pg/mL Total Protein 5.5 L (6.3-8.2) g/dL Albumin 2.4 L (3.5-5.0) g/dL Globulin 3.1 (1.7-4.1) g/dL Albumin/Globulin Ratio 0.8 L (1.0-2.8) Lipase 228 D (23-300) U/L Procalcitonin 3.05 H (<0.5) ng/mL Urine Color Yellow Urine Appearance Clear Urine pH 5.0 (4.5-8.0) Ur Specific [place] 1.020 (1.000-1.035) Urine Protein Trace H (Negative) Urine Glucose (UA) Negative (Negative) g/dL Urine Ketones Negative (NEGATIVE) Urine Occult Blood Negative (Negative) Urine Nitrate Negative (Negative) Urine Bilirubin Negative (NEGATIVE) Urine Urobilinogen 0.2 (0.2) E.U./dL Ur Leukocyte Esterase Negative (NEGATIVE) Urine RBC 0-1/hpf (0-5/HPF) Urine WBC 0-1/hpf (0-5/HPF) Ur Squamous Epith Cells 0-1 /hpf (0-5/HPF) Amorphous Sediment 1+ Urine Bacteria Few (2-10) H (None) Ur Culture Indicated? Cult not indicated Chlamy pneumoniae PCR (Not Detect) Adenovirus (PCR) (Not Detect) B. pertussis DNA (PCR) (Not Detecte) B.parapertussis DNA PCR (Not Detecte) Coronavirus OC43 (PCR) (Not Detect) Coronavirus HKU1 (PCR) (Not Detect) Coronavirus 229E (PCR) (Not Detect) SARS-CoV-2 (PCR) (Not Detecte) Coronavirus NL63 (PCR) (Not Detect) Human Metapneumovir PCR (Not Detect) Influenza Type A (PCR) (Not Detect) Influenza Type B (PCR) (Not Detect) M. pneumoniae (PCR) (Not Detect) Parainfluenza 1 (PCR) (Not Detect) Parainfluenza 2 (PCR) (Not Detect) Parainfluenza 3 (PCR) (Not Detect) Parainfluenza 4 (PCR) (Not Detect) RSV (PCR) (Not Detect) Entero/Rhino (PCR) (Not Detect) Blood Type Antibody Screen 02/12/23 02/12/23 02/12/23 Range/Units 16:35 16:35 16:35 WBC (4.5-11.0) X10^3/uL RBC (4.5-5.9) X10^6/uL Hgb (13.5-17.5) g/dL Hct (41-53) % MCV (80-100) fL MCH (26-34) PG MCHC (30-36) % RDW (11.6-14.8) % Plt Count (150-400) X10^3/uL Neut % (Auto) Lymph % (Auto) Stephenson % (Auto) Eos % (Auto) Baso % (Auto) Neut # (Auto) (5695-0553) /uL Lymph # (Auto) Stephenson # (Auto) Eos # (Auto) (0-450) /uL Baso # (Auto) Total Counted Seg Neutrophils % (38-70) % Lymphocytes % (Manual) (25-45) % Monocytes % (Manual) (2-11) % Metamyelocytes % (-0) % Neutrophils # (Manual) (1817-4075) /uL Nucleated RBCs ( - 0) #/Diff Platelet Estimate RBC Morphology Poikilocytosis Anisocytosis PT (10.1-12.7) SECONDS INR (0.9-1.3) APTT (26-36) SECONDS Fibrinogen (211-428) mg/dL D-Dimer (<500) ng/ml Sodium 140 (137-145) mmol/L Potassium 3.6 (3.4-5.1) mmol/L Chloride 112 H (98-107) mmol/L Carbon Dioxide 12 L (22-32) mmol/L BUN 73 H (9-20) mg/dL Creatinine 2.84 H (0.66-1.25) mg/dL Estimated GFR 21 L (>60) mL/min BUN/Creatinine Ratio 25.7 H (6-22) Glucose 96 (80-110) mg/dL Lactate 5.2 H* (0.7-2.1) mmol/L Calcium 6.4 L* (8.4-10.2) mg/dL Magnesium (1.6-2.3) mg/dL Total Bilirubin 1.4 H (0.2-1.3) mg/dL AST 83 H (17-59) IU/L ALT 26 (<50) IU/L Alkaline Phosphatase 201 H (38-126) U/L Total Creatine Kinase (55-170) U/L CK-MB (CK-2) CK-MB (CK-2) Rel Index Troponin I 0.012 (0.01-0.034) ng/mL NT-Pro-B Natriuret Pep (<450) pg/mL Total Protein 4.6 L (6.3-8.2) g/dL Albumin 1.8 L (3.5-5.0) g/dL Globulin 2.8 (1.7-4.1) g/dL Albumin/Globulin Ratio 0.6 L (1.0-2.8) Lipase (23-300) U/L Procalcitonin (<0.5) ng/mL Urine Color Urine Appearance Urine pH (4.5-8.0) Ur Specific [place] (1.000-1.035) Urine Protein (Negative) Urine Glucose (UA) (Negative) g/dL Urine Ketones (NEGATIVE) Urine Occult Blood (Negative) Urine Nitrate (Negative) Urine Bilirubin (NEGATIVE) Urine Urobilinogen (0.2) E.U./dL Ur Leukocyte Esterase (NEGATIVE) Urine RBC (0-5/HPF) Urine WBC (0-5/HPF) Ur Squamous Epith Cells (0-5/HPF) Amorphous Sediment Urine Bacteria (None) Ur Culture Indicated? Chlamy pneumoniae PCR (Not Detect) Adenovirus (PCR) (Not Detect) B. pertussis DNA (PCR) (Not Detecte) B.parapertussis DNA PCR (Not Detecte) Coronavirus OC43 (PCR) (Not Detect) Coronavirus HKU1 (PCR) (Not Detect) Coronavirus 229E (PCR) (Not Detect) SARS-CoV-2 (PCR) (Not Detecte) Coronavirus NL63 (PCR) (Not Detect) Human Metapneumovir PCR (Not Detect) Influenza Type A (PCR) (Not Detect) Influenza Type B (PCR) (Not Detect) M. pneumoniae (PCR) (Not Detect) Parainfluenza 1 (PCR) (Not Detect) Parainfluenza 2 (PCR) (Not Detect) Parainfluenza 3 (PCR) (Not Detect) Parainfluenza 4 (PCR) (Not Detect) RSV (PCR) (Not Detect) Entero/Rhino (PCR) (Not Detect) Blood Type Antibody Screen 02/12/23 02/12/23 02/12/23 Range/Units 20:30 20:30 20:30 WBC 5.3 D (4.5-11.0) X10^3/uL RBC 3.44 L (4.5-5.9) X10^6/uL Hgb 9.0 L (13.5-17.5) g/dL Hct 27.5 L (41-53) % MCV 79.8 L D (80-100) fL MCH 26.1 (26-34) PG MCHC 32.7 (30-36) % RDW 19.0 H (11.6-14.8) % Plt Count 20 L* (150-400) X10^3/uL Neut % (Auto) 56.3 Lymph % (Auto) 35.7 Stephenson % (Auto) 7.4 Eos % (Auto) 0.3 L Baso % (Auto) 0.3 Neut # (Auto) 3000 (8832-7089) /uL Lymph # (Auto) 1900 Stephenson # (Auto) 400 Eos # (Auto) 0 (0-450) /uL Baso # (Auto) 0 Total Counted Seg Neutrophils % (38-70) % Lymphocytes % (Manual) (25-45) % Monocytes % (Manual) (2-11) % Metamyelocytes % (-0) % Neutrophils # (Manual) (8829-2063) /uL Nucleated RBCs ( - 0) #/Diff Platelet Estimate Decreased on smear RBC Morphology Normal morphology Poikilocytosis Anisocytosis PT (10.1-12.7) SECONDS INR (0.9-1.3) APTT (26-36) SECONDS Fibrinogen (211-428) mg/dL D-Dimer (<500) ng/ml Sodium 139 (137-145) mmol/L Potassium 2.9 L (3.4-5.1) mmol/L Chloride 110 H (98-107) mmol/L Carbon Dioxide 19 L (22-32) mmol/L BUN 75 H (9-20) mg/dL Creatinine 2.98 H (0.66-1.25) mg/dL Estimated GFR 20 L (>60) mL/min BUN/Creatinine Ratio 25.2 H (6-22) Glucose 145 H (80-110) mg/dL Lactate 2.2 H (0.7-2.1) mmol/L Calcium 6.3 L* (8.4-10.2) mg/dL Magnesium (1.6-2.3) mg/dL Total Bilirubin (0.2-1.3) mg/dL AST (17-59) IU/L ALT (<50) IU/L Alkaline Phosphatase (38-126) U/L Total Creatine Kinase (55-170) U/L CK-MB (CK-2) CK-MB (CK-2) Rel Index Troponin I (0.01-0.034) ng/mL NT-Pro-B Natriuret Pep (<450) pg/mL Total Protein (6.3-8.2) g/dL Albumin (3.5-5.0) g/dL Globulin (1.7-4.1) g/dL Albumin/Globulin Ratio (1.0-2.8) Lipase (23-300) U/L Procalcitonin (<0.5) ng/mL Urine Color Urine Appearance Urine pH (4.5-8.0) Ur Specific [place] (1.000-1.035) Urine Protein (Negative) Urine Glucose (UA) (Negative) g/dL Urine Ketones (NEGATIVE) Urine Occult Blood (Negative) Urine Nitrate (Negative) Urine Bilirubin (NEGATIVE) Urine Urobilinogen (0.2) E.U./dL Ur Leukocyte Esterase (NEGATIVE) Urine RBC (0-5/HPF) Urine WBC (0-5/HPF) Ur Squamous Epith Cells (0-5/HPF) Amorphous Sediment Urine Bacteria (None) Ur Culture Indicated? Chlamy pneumoniae PCR (Not Detect) Adenovirus (PCR) (Not Detect) B. pertussis DNA (PCR) (Not Detecte) B.parapertussis DNA PCR (Not Detecte) Coronavirus OC43 (PCR) (Not Detect) Coronavirus HKU1 (PCR) (Not Detect) Coronavirus 229E (PCR) (Not Detect) SARS-CoV-2 (PCR) (Not Detecte) Coronavirus NL63 (PCR) (Not Detect) Human Metapneumovir PCR (Not Detect) Influenza Type A (PCR) (Not Detect) Influenza Type B (PCR) (Not Detect) M. pneumoniae (PCR) (Not Detect) Parainfluenza 1 (PCR) (Not Detect) Parainfluenza 2 (PCR) (Not Detect) Parainfluenza 3 (PCR) (Not Detect) Parainfluenza 4 (PCR) (Not Detect) RSV (PCR) (Not Detect) Entero/Rhino (PCR) (Not Detect) Blood Type Antibody Screen 02/12/23 02/12/23 02/12/23 Range/Units 20:30 20:30 21:50 WBC (4.5-11.0) X10^3/uL RBC (4.5-5.9) X10^6/uL Hgb (13.5-17.5) g/dL Hct (41-53) % MCV (80-100) fL MCH (26-34) PG MCHC (30-36) % RDW (11.6-14.8) % Plt Count (150-400) X10^3/uL Neut % (Auto) Lymph % (Auto) Stephenson % (Auto) Eos % (Auto) Baso % (Auto) Neut # (Auto) (7072-8970) /uL Lymph # (Auto) Stephenson # (Auto) Eos # (Auto) (0-450) /uL Baso # (Auto) Total Counted Seg Neutrophils % (38-70) % Lymphocytes % (Manual) (25-45) % Monocytes % (Manual) (2-11) % Metamyelocytes % (-0) % Neutrophils # (Manual) (0951-2137) /uL Nucleated RBCs ( - 0) #/Diff Platelet Estimate RBC Morphology Poikilocytosis Anisocytosis PT (10.1-12.7) SECONDS INR (0.9-1.3) APTT (26-36) SECONDS Fibrinogen 124 L (211-428) mg/dL D-Dimer 3751 H (<500) ng/ml Sodium (137-145) mmol/L Potassium (3.4-5.1) mmol/L Chloride (98-107) mmol/L Carbon Dioxide (22-32) mmol/L BUN (9-20) mg/dL Creatinine (0.66-1.25) mg/dL Estimated GFR (>60) mL/min BUN/Creatinine Ratio (6-22) Glucose (80-110) mg/dL Lactate (0.7-2.1) mmol/L Calcium (8.4-10.2) mg/dL Magnesium 2.1 (1.6-2.3) mg/dL Total Bilirubin (0.2-1.3) mg/dL AST (17-59) IU/L ALT (<50) IU/L Alkaline Phosphatase (38-126) U/L Total Creatine Kinase (55-170) U/L CK-MB (CK-2) CK-MB (CK-2) Rel Index Troponin I (0.01-0.034) ng/mL NT-Pro-B Natriuret Pep (<450) pg/mL Total Protein (6.3-8.2) g/dL Albumin (3.5-5.0) g/dL Globulin (1.7-4.1) g/dL Albumin/Globulin Ratio (1.0-2.8) Lipase (23-300) U/L Procalcitonin (<0.5) ng/mL Urine Color Urine Appearance Urine pH (4.5-8.0) Ur Specific Bol[place] (1.000-1.035) Urine Protein (Negative) Urine Glucose (UA) (Negative) g/dL Urine Ketones (NEGATIVE) Urine Occult Blood (Negative) Urine Nitrate (Negative) Urine Bilirubin (NEGATIVE) Urine Urobilinogen (0.2) E.U./dL Ur Leukocyte Esterase (NEGATIVE) Urine RBC (0-5/HPF) Urine WBC (0-5/HPF) Ur Squamous Epith Cells (0-5/HPF) Amorphous Sediment Urine Bacteria (None) Ur Culture Indicated? Chlamy pneumoniae PCR (Not Detect) Adenovirus (PCR) (Not Detect) B. pertussis DNA (PCR) (Not Detecte) B.parapertussis DNA PCR (Not Detecte) Coronavirus OC43 (PCR) (Not Detect) Coronavirus HKU1 (PCR) (Not Detect) Coronavirus 229E (PCR) (Not Detect) SARS-CoV-2 (PCR) (Not Detecte) Coronavirus NL63 (PCR) (Not Detect) Human Metapneumovir PCR (Not Detect) Influenza Type A (PCR) (Not Detect) Influenza Type B (PCR) (Not Detect) M. pneumoniae (PCR) (Not Detect) Parainfluenza 1 (PCR) (Not Detect) Parainfluenza 2 (PCR) (Not Detect) Parainfluenza 3 (PCR) (Not Detect) Parainfluenza 4 (PCR) (Not Detect) RSV (PCR) (Not Detect) Entero/Rhino (PCR) (Not Detect) Blood Type B Positive Antibody Screen Negative 02/12/23 Range/Units 21:50 WBC (4.5-11.0) X10^3/uL RBC (4.5-5.9) X10^6/uL Hgb (13.5-17.5) g/dL Hct (41-53) % MCV (80-100) fL MCH (26-34) PG MCHC (30-36) % RDW (11.6-14.8) % Plt Count (150-400) X10^3/uL Neut % (Auto) Lymph % (Auto) Stephenson % (Auto) Eos % (Auto) Baso % (Auto) Neut # (Auto) (7772-9406) /uL Lymph # (Auto) Stephenson # (Auto) Eos # (Auto) (0-450) /uL Baso # (Auto) Total Counted Seg Neutrophils % (38-70) % Lymphocytes % (Manual) (25-45) % Monocytes % (Manual) (2-11) % Metamyelocytes % (-0) % Neutrophils # (Manual) (8615-5773) /uL Nucleated RBCs ( - 0) #/Diff Platelet Estimate RBC Morphology Poikilocytosis Anisocytosis PT (10.1-12.7) SECONDS INR (0.9-1.3) APTT (26-36) SECONDS Fibrinogen (211-428) mg/dL D-Dimer (<500) ng/ml Sodium (137-145) mmol/L Potassium (3.4-5.1) mmol/L Chloride (98-107) mmol/L Carbon Dioxide (22-32) mmol/L BUN (9-20) mg/dL Creatinine (0.66-1.25) mg/dL Estimated GFR (>60) mL/min BUN/Creatinine Ratio (6-22) Glucose (80-110) mg/dL Lactate 2.4 H (0.7-2.1) mmol/L Calcium (8.4-10.2) mg/dL Magnesium (1.6-2.3) mg/dL Total Bilirubin (0.2-1.3) mg/dL AST (17-59) IU/L ALT (<50) IU/L Alkaline Phosphatase (38-126) U/L Total Creatine Kinase (55-170) U/L CK-MB (CK-2) CK-MB (CK-2) Rel Index Troponin I (0.01-0.034) ng/mL NT-Pro-B Natriuret Pep (<450) pg/mL Total Protein (6.3-8.2) g/dL Albumin (3.5-5.0) g/dL Globulin (1.7-4.1) g/dL Albumin/Globulin Ratio (1.0-2.8) Lipase (23-300) U/L Procalcitonin (<0.5) ng/mL Urine Color Urine Appearance Urine pH (4.5-8.0) Ur Specific [place] (1.000-1.035) Urine Protein (Negative) Urine Glucose (UA) (Negative) g/dL Urine Ketones (NEGATIVE) Urine Occult Blood (Negative) Urine Nitrate (Negative) Urine Bilirubin (NEGATIVE) Urine Urobilinogen (0.2) E.U./dL Ur Leukocyte Esterase (NEGATIVE) Urine RBC (0-5/HPF) Urine WBC (0-5/HPF) Ur Squamous Epith Cells (0-5/HPF) Amorphous Sediment Urine Bacteria (None) Ur Culture Indicated? Chlamy pneumoniae PCR (Not Detect) Adenovirus (PCR) (Not Detect) B. pertussis DNA (PCR) (Not Detecte) B.parapertussis DNA PCR (Not Detecte) Coronavirus OC43 (PCR) (Not Detect) Coronavirus HKU1 (PCR) (Not Detect) Coronavirus 229E (PCR) (Not Detect) SARS-CoV-2 (PCR) (Not Detecte) Coronavirus NL63 (PCR) (Not Detect) Human Metapneumovir PCR (Not Detect) Influenza Type A (PCR) (Not Detect) Influenza Type B (PCR) (Not Detect) M. pneumoniae (PCR) (Not Detect) Parainfluenza 1 (PCR) (Not Detect) Parainfluenza 2 (PCR) (Not Detect) Parainfluenza 3 (PCR) (Not Detect) Parainfluenza 4 (PCR) (Not Detect) RSV (PCR) (Not Detect) Entero/Rhino (PCR) (Not Detect) Blood Type Antibody Screen Point of Care Testing Glucose POC [address] scan - head: Radiologist's Impression: [address] [address] [address] Scan Report Signed Patient: Abhinav Allen MR#: [id number] : 1935 Acct:[id number] Age/Sex: 87 / M Date of Service: 02/12/23 Loc: ED Accession Number: [id number] ?? Procedure: CT head/brain wo con Ordering Provider: Nathan Chi MD PROCEDURE:? CT HEAD/BRAIN WO CON ? INDICATIONS:? trauma, right hip pain ? TECHNIQUE:? Noncontrast 4.5 mm thick angled axial sections acquired from the foramen magnum to the vertex, with coronal and sagittal reformats.? For radiation dose reduction, the following was used:? automated exposure control, adjustment of mA and/or kV according to patient size.? ? COMPARISON:? None. ? FINDINGS:? Image quality:? Excellent.? ? CSF spaces:? Basal cisterns are patent.? No extra-axial fluid collections.? The ventricles are symmetric in size and shape.? ? Brain:? No intracranial bleeds or masses.? There is cerebral volume loss for age, with resultant ventricular and sulcal prominence.? There are periventricular and deep white matter chronic small vessel ischemic changes.? There is intracranial internal carotid artery atherosclerosis.? ? Skull and face:? Calvarium and visualized facial bones appear intact, without suspicious lesions.? ? Sinuses:? Visualized sinuses and mastoids are clear.? ? IMPRESSION:? ? 1. No acute intracranial process. ? 2. Moderate atrophy and chronic microvascular ischemic changes. ? ? ? Dictated by: Nina Medellin M.D. on 02/12/2023 at 15:01 ? ? Approved by: Nina Medellin M.D. on 02/12/2023 at 15:02 ? CT - cervical spine: Radiologist's Impression: [place] [address] CT Scan Report Signed Patient: Abhinav Allen MR#: [id number] : 1935 Acct:[id number] Age/Sex: 87 / M Date of Service: 02/12/23 Loc: ED Accession Number: [id number] ?? Procedure: CT cervical spine wo con Ordering Provider: Nathan Chi MD PROCEDURE:? CT CERVICAL SPINE WO CON ? INDICATIONS:? trauma, right hip pain ? TECHNIQUE:? Noncontrast 3 mm thick sections acquired from the skull base to the T4 level.? Sagittal and coronal reformats were then constructed.? For radiation dose reduction, the following was used:? automated exposure control, adjustment of mA and/or kV according to patient size.? ? COMPARISON:? None. ? FINDINGS:? Image quality:? Excellent.? ? Bones:? No fractures or dislocations.? Visualized superior ribs are intact.? Multilevel degenerative changes are present.? Multilevel bridging anterior osteophytes are present. ? Soft tissues:? Prevertebral soft tissues are normal in thickness.? No paravertebral hematomas.? No apical pneumothoraces.? ? ? IMPRESSION:? Multilevel degenerative changes without visualized fracture. ? Dictated by: Nina Medellin M.D. on 02/12/2023 at 15:02 ? ? Approved by: Nina Medellin M.D. on 02/12/2023 at 15:03 ? CT chest abdomen and pelvis: Radiologist's Impression: [place] [address] CT Scan Report Signed Patient: Abhinav Allen MR#: [id number] : 1935 Acct:[id number] Age/Sex: 87 / M Date of Service: 02/12/23 Loc: ED Accession Number: [id number] ?? Procedure: CT chest abd pel wo con Ordering Provider: Nathan Chi MD PROCEDURE:? CT CHEST ABD PEL WO CON ? INDICATIONS:? Fall/trauma ? TECHNIQUE:? After the administration of oral contrast, 5 mm thick sections acquired from the lung apices to the symphysis pubis.? 5 mm thick coronal and sagittal reformats acquired, with additional 7 mm coronal MIP reformats through the lungs.? For radiation dose reduction, the following was used:? automated exposure control, adjustment of mA and/or kV according to patient size.? ? COMPARISON:? [facility], CT, CT CHEST ABD PEL W CON, 02/08/2023, 12:37. ? FINDINGS:? Image quality:? Excellent.? ? CHEST:? Lungs and pleura:? No acute pulmonary opacities.? No pleural effusions or pneumothorax.? Central and peripheral airways are patent are normal in caliber.? Multiple bilateral pulmonary nodules, some demonstrating partial calcification are unchanged. ? Mediastinum:? Heart size is normal.? No pericardial effusion.? No mediastinal adenopathy by CT size criteria.? Thoracic aorta and central pulmonary arteries are normal in size.? Esophagus is normal in caliber.? No hiatal hernia.? ? Chest wall:? No axillary or supraclavicular adenopathy by size criteria.? Thyroid gland is unremarkable .? ? ? ABDOMEN:? Solid organs:? Liver is normal in size.? Multiple simple hepatic cysts are stable.? Hepatic steatosis is present.? Gallbladder demonstrates small dependent luminal calcifications without wall thickening, unchanged .? Pancreas is normal in contours.? Spleen remains markedly enlarged with areas of low attenuation, unchanged.? No adrenal nodules.? Both kidneys are normal in size, without hydronephrosis or nephrolithiasis.? ? Peritoneum and bowel:? Small and large bowel loops are normal in caliber and wall thickness.? No free fluid or air.? ? Nodes and vessels:? No retroperitoneal or mesenteric adenopathy by size criteria.? Aorta and inferior vena cava are normal in size.? ? Miscellaneous:? No ventral hernias.? ? ? PELVIS:? Genitourinary:? Bladder wall thickness is normal.? ? Miscellaneous:? Fat containing inguinal hernias are present. ? Bones:? No suspicious bony lesions.? Unchanged appearance of L1 fracture. ? IMPRESSION:? ? No acute osseous or visceral traumatic injury.? Appearance of L1 fracture is unchanged compared to prior exam and otherwise indeterminate in age. ? Unchanged appearance of marked splenomegaly with areas of low attenuation.? The latter are better delineated on prior exam of 02/08/2023. ? ? Dictated by: Nina Medellin M.D. on 02/12/2023 at 15:03 ? ? Approved by: Nina Medellin M.D. on 02/12/2023 at 15:12 ? Extremity x-ray #1: Radiologist's Impression: [address] [address] XRay Report Signed Patient: Abhinav Allen MR#: [id number] : 1935 Acct:[id number] Age/Sex: 87 / M Date of Service: 02/12/23 Loc: ED Accession Number: [id number] ?? Procedure: XR hip w pel if done RT 2V Ordering Provider: Nathan Chi MD PROCEDURE:? XR HIP W PEL IF DONE RT 2V ? INDICATIONS:? trauma, right hip pain ? TECHNIQUE:? AP pelvis with lateral view(s) of the right hip(s).? ? COMPARISON:? [facility], CR, XR HIP W PEL IF DONE RT 2V, 11/10/2021, 16:12. ? FINDINGS:? ? Bones:? No fractures or dislocations.? Pelvic ring appears intact.? No suspicious bony lesions.? ? Soft tissues:? The visualized bowel gas pattern is normal.? No suspicious soft tissue calcifications.? Right hip calcific tendinitis is present. ? ? IMPRESSION:? No visualized acute fracture or dislocation. However, if clinical concern and/or pain persist, short interval imaging followup in 7-10 days is recommended, as occult injury cannot be definitively excluded. ? Dictated by: Nina Medellin M.D. on 02/12/2023 at 15:18 ? ? Approved by: Nina Medellin M.D. on 02/12/2023 at 15:18 ? Chest x-ray: Radiologist's Impression: [address] [address] XRay Report Signed Patient: Abhinav Allen MR#: [id number] : 1935 Acct:[id number] Age/Sex: 87 / M Date of Service: 02/12/23 Loc: ED Accession Number: [id number] ?? Procedure: XR chest 1V Ordering Provider: Nathan Chi MD PROCEDURE:? XR CHEST 1V ? INDICATIONS:? suspected sepsis ? TECHNIQUE:? One view of the chest was acquired.? ? COMPARISON:? [facility], CR, XR CHEST 2V, 02/01/2023, 11:47. ? FINDINGS:? ? Surgical changes and devices:? None.? ? Lungs and pleura:? Lungs are clear.? No pleural effusions or pneumothorax.? ? Mediastinum:? Mediastinal contours appear normal.? Heart size is normal.? ? Bones and chest wall:? No suspicious bony lesions.? Overlying soft tissues appear unremarkable.? ? IMPRESSION:? No acute pulmonary process. ? ? Dictated by: Nina Medellin M.D. on 02/12/2023 at 15:17 ? ? Approved by: Nina Medellin M.D. on 02/12/2023 at 15:17 ? MDM Narrative Medical decision making narrative: Patient brought in by ambulance from home for complaints of generalized weakness weight loss and fall. Patient fell today trying to go to the bathroom. He was home alone. Family return to find him on the floor. Complains of right hip pain. Patient has had a 40 lb weight loss in the past 2 months. Primary care started seeing him this month. CT imaging blood work done on February 08. CT imaging chest abdomen pelvis concerning for lymphoma. Laboratory studies concerning for thrombocytopenia. Patient has had very little oral intake for the past 2 weeks. Feeling weak and tired and dehydrated. Has decreased urine output. Denies any chest pain or dyspnea After history and exam CT head CT cervical spine CT chest abdomen pelvis EKG troponin lactic acid procalcitonin urinalysis IV fluids MDM CC: Weakness/fall Complicating co-morbidities: Likely lymphoma Data collected from: Patient daughter Medical records reviewed: CT imaging from February 08, 2023 done here Differential considered: Includes but not limited to lymphoma/kidney failure/dehydration/pelvic fracture/sepsis Exam documented above, pertinent findings include: Emaciated appearing Lab Test results independently reviewed as above. Pertinent findings: WBC 11.0 hemoglobin 11.1 platelets 23 INR 1.8 Sodium 142 potassium 4.1 bicarb 8 BUN 67 creatinine 3.18 GFR 18 Lactic acid 10.8 AST 104 ALT 46 total bilirubin 1.7 calcium 7.2 BNP 5770 Procalcitonin 3.05 Independently reviewed EKG wide QRS rhythm. Right bundle-branch rate 117 Imaging studies independently reviewed: CT head no acute finding CT cervical spine no acute finding CT abdomen pelvis and chest no acute fine Chest x-ray and right hip x-ray no acute finding Consultations: 3:40 p.m.. Spoke with [facility] mop maker, Dr. Bal. Reviewed laboratory studies and imaging. At this time would continue normal saline hydration with sodium bicarbonate. ABG can be done when patient arrives at their facility. Will not currency exchange specialist here. 3:50 p.m.. Spoke with Oncology, Dr. Cosby, no additional labs or imaging indicated. He will see patient when admitted to [facility] 4:[address] Ray, hospitalist here at [facility], patient needs to be transferred for higher level of care Treatments: Normal saline bicarb Zosyn Tylenol Re-evaluations: 4:30 p.m.. Updated patient results. C-collar has been cleared clinically. CT cervical spine is unremarkable. Patient and family do understand need to transfer for multiple reasons including Oncology as well as Nephrology the services we do not have here. 4:35 p.m.. Spoke with [facility] Oncology Dr. Bradley, [address] [place] [address], he will see patient in consult if admitted there. 5:24 p.m.. I spoke with [address], Dr. Garcia, he will accept patient. Discussion: Appropriate for transfer. I did review with patient and family. We do not have Nephrology or oncology. Patient needs higher level of care. Fluid hydration has been started. Antibiotics as well. Diagnosis: Acute renal failure/failure to thrive <Pietro Paulinocory, DO - Last Filed: 02/13/23 01:47> Lab Data Attestation: I reviewed the patient's lab results. Labs: Lab Results 02/12/23 02/12/23 02/12/23 Range/Units 14:00 14:10 14:10 WBC 11.0 (4.5-11.0) X10^3/uL RBC 4.17 L (4.5-5.9) X10^6/uL Hgb 11.1 L (13.5-17.5) g/dL Hct 34.6 L (41-53) % MCV 82.9 D (80-100) fL MCH 26.6 (26-34) PG MCHC 32.0 (30-36) % RDW 19.4 H (11.6-14.8) % Plt Count 23 L* (150-400) X10^3/uL Neut % (Auto) Not Reportable Lymph % (Auto) Not Reportable Stephenson % (Auto) Not Reportable Eos % (Auto) Not Reportable Baso % (Auto) Not Reportable Neut # (Auto) (5038-4995) /uL Lymph # (Auto) Not Reportable Stephenson # (Auto) Not Reportable Eos # (Auto) (0-450) /uL Baso # (Auto) Not Reportable Total Counted 100 Seg Neutrophils % 73.0 H (38-70) % Lymphocytes % (Manual) 22.0 L (25-45) % Monocytes % (Manual) 4.0 (2-11) % Metamyelocytes % 1.0 H (-0) % Neutrophils # (Manual) 8030 H (6117-7533) /uL Nucleated RBCs 1 H ( - 0) #/Diff Platelet Estimate Decreased on smear RBC Morphology See below Poikilocytosis 1+ H Anisocytosis 1+ H PT 20.4 H (10.1-12.7) SECONDS INR 1.8 H (0.9-1.3) APTT 32 (26-36) SECONDS Fibrinogen (211-428) mg/dL D-Dimer (<500) ng/ml Sodium (137-145) mmol/L Potassium (3.4-5.1) mmol/L Chloride (98-107) mmol/L Carbon Dioxide (22-32) mmol/L BUN (9-20) mg/dL Creatinine (0.66-1.25) mg/dL Estimated GFR (>60) mL/min BUN/Creatinine Ratio (6-22) Glucose (80-110) mg/dL Lactate (0.7-2.1) mmol/L Calcium (8.4-10.2) mg/dL Magnesium (1.6-2.3) mg/dL Total Bilirubin (0.2-1.3) mg/dL AST (17-59) IU/L ALT (<50) IU/L Alkaline Phosphatase (38-126) U/L Total Creatine Kinase (55-170) U/L CK-MB (CK-2) CK-MB (CK-2) Rel Index Troponin I (0.01-0.034) ng/mL NT-Pro-B Natriuret Pep (<450) pg/mL Total Protein (6.3-8.2) g/dL Albumin (3.5-5.0) g/dL Globulin (1.7-4.1) g/dL Albumin/Globulin Ratio (1.0-2.8) Lipase (23-300) U/L Procalcitonin (<0.5) ng/mL Urine Color Urine Appearance Urine pH (4.5-8.0) Ur Specific [place] (1.000-1.035) Urine Protein (Negative) Urine Glucose (UA) (Negative) g/dL Urine Ketones (NEGATIVE) Urine Occult Blood (Negative) Urine Nitrate (Negative) Urine Bilirubin (NEGATIVE) Urine Urobilinogen (0.2) E.U./dL Ur Leukocyte Esterase (NEGATIVE) Urine RBC (0-5/HPF) Urine WBC (0-5/HPF) Ur Squamous Epith Cells (0-5/HPF) Amorphous Sediment Urine Bacteria (None) Ur Culture Indicated? Chlamy pneumoniae PCR Not detected (Not Detect) Adenovirus (PCR) Not detected (Not Detect) B. pertussis DNA (PCR) Not detected (Not Detecte) B.parapertussis DNA PCR Not detected (Not Detecte) Coronavirus OC43 (PCR) Not detected (Not Detect) Coronavirus HKU1 (PCR) Not detected (Not Detect) Coronavirus 229E (PCR) Not detected (Not Detect) SARS-CoV-2 (PCR) Not detected (Not Detecte) Coronavirus NL63 (PCR) Not detected (Not Detect) Human Metapneumovir PCR Not detected (Not Detect) Influenza Type A (PCR) Not detected (Not Detect) Influenza Type B (PCR) Not detected (Not Detect) M. pneumoniae (PCR) Not detected (Not Detect) Parainfluenza 1 (PCR) Not detected (Not Detect) Parainfluenza 2 (PCR) Not detected (Not Detect) Parainfluenza 3 (PCR) Not detected (Not Detect) Parainfluenza 4 (PCR) Not detected (Not Detect) RSV (PCR) Not detected (Not Detect) Entero/Rhino (PCR) Not detected (Not Detect) Blood Type Antibody Screen 02/12/23 02/12/23 02/12/23 Range/Units 14:10 14:10 15:15 WBC (4.5-11.0) X10^3/uL RBC (4.5-5.9) X10^6/uL Hgb (13.5-17.5) g/dL Hct (41-53) % MCV (80-100) fL MCH (26-34) PG MCHC (30-36) % RDW (11.6-14.8) % Plt Count (150-400) X10^3/uL Neut % (Auto) Lymph % (Auto) Stephenson % (Auto) Eos % (Auto) Baso % (Auto) Neut # (Auto) (2501-9181) /uL Lymph # (Auto) Stephenson # (Auto) Eos # (Auto) (0-450) /uL Baso # (Auto) Total Counted Seg Neutrophils % (38-70) % Lymphocytes % (Manual) (25-45) % Monocytes % (Manual) (2-11) % Metamyelocytes % (-0) % Neutrophils # (Manual) (0453-5719) /uL Nucleated RBCs ( - 0) #/Diff Platelet Estimate RBC Morphology Poikilocytosis Anisocytosis PT (10.1-12.7) SECONDS INR (0.9-1.3) APTT (26-36) SECONDS Fibrinogen (211-428) mg/dL D-Dimer (<500) ng/ml Sodium 142 (137-145) mmol/L Potassium 4.1 (3.4-5.1) mmol/L Chloride 111 H (98-107) mmol/L Carbon Dioxide 8 L* (22-32) mmol/L BUN 67 H (9-20) mg/dL Creatinine 3.18 H (0.66-1.25) mg/dL Estimated GFR 18 L (>60) mL/min BUN/Creatinine Ratio 21.1 (6-22) Glucose 97 (80-110) mg/dL Lactate 10.8 H* (0.7-2.1) mmol/L Calcium 7.2 L (8.4-10.2) mg/dL Magnesium (1.6-2.3) mg/dL Total Bilirubin 1.7 H (0.2-1.3) mg/dL AST 104 H (17-59) IU/L ALT 46 (<50) IU/L Alkaline Phosphatase 268 H (38-126) U/L Total Creatine Kinase 26 L (55-170) U/L CK-MB (CK-2) TNP CK-MB (CK-2) Rel Index TNP Troponin I 0.014 (0.01-0.034) ng/mL NT-Pro-B Natriuret Pep 5770 H (<450) pg/mL Total Protein 5.5 L (6.3-8.2) g/dL Albumin 2.4 L (3.5-5.0) g/dL Globulin 3.1 (1.7-4.1) g/dL Albumin/Globulin Ratio 0.8 L (1.0-2.8) Lipase 228 D (23-300) U/L Procalcitonin 3.05 H (<0.5) ng/mL Urine Color Yellow Urine Appearance Clear Urine pH 5.0 (4.5-8.0) Ur Specific [place] 1.020 (1.000-1.035) Urine Protein Trace H (Negative) Urine Glucose (UA) Negative (Negative) g/dL Urine Ketones Negative (NEGATIVE) Urine Occult Blood Negative (Negative) Urine Nitrate Negative (Negative) Urine Bilirubin Negative (NEGATIVE) Urine Urobilinogen 0.2 (0.2) E.U./dL Ur Leukocyte Esterase Negative (NEGATIVE) Urine RBC 0-1/hpf (0-5/HPF) Urine WBC 0-1/hpf (0-5/HPF) Ur Squamous Epith Cells 0-1 /hpf (0-5/HPF) Amorphous Sediment 1+ Urine Bacteria Few (2-10) H (None) Ur Culture Indicated? Cult not indicated Chlamy pneumoniae PCR (Not Detect) Adenovirus (PCR) (Not Detect) B. pertussis DNA (PCR) (Not Detecte) B.parapertussis DNA PCR (Not Detecte) Coronavirus OC43 (PCR) (Not Detect) Coronavirus HKU1 (PCR) (Not Detect) Coronavirus 229E (PCR) (Not Detect) SARS-CoV-2 (PCR) (Not Detecte) Coronavirus NL63 (PCR) (Not Detect) Human Metapneumovir PCR (Not Detect) Influenza Type A (PCR) (Not Detect) Influenza Type B (PCR) (Not Detect) M. pneumoniae (PCR) (Not Detect) Parainfluenza 1 (PCR) (Not Detect) Parainfluenza 2 (PCR) (Not Detect) Parainfluenza 3 (PCR) (Not Detect) Parainfluenza 4 (PCR) (Not Detect) RSV (PCR) (Not Detect) Entero/Rhino (PCR) (Not Detect) Blood Type Antibody Screen 02/12/23 02/12/23 02/12/23 Range/Units 16:35 16:35 16:35 WBC (4.5-11.0) X10^3/uL RBC (4.5-5.9) X10^6/uL Hgb (13.5-17.5) g/dL Hct (41-53) % MCV (80-100) fL MCH (26-34) PG MCHC (30-36) % RDW (11.6-14.8) % Plt Count (150-400) X10^3/uL Neut % (Auto) Lymph % (Auto) Stephenson % (Auto) Eos % (Auto) Baso % (Auto) Neut # (Auto) (2587-5421) /uL Lymph # (Auto) Stephenson # (Auto) Eos # (Auto) (0-450) /uL Baso # (Auto) Total Counted Seg Neutrophils % (38-70) % Lymphocytes % (Manual) (25-45) % Monocytes % (Manual) (2-11) % Metamyelocytes % (-0) % Neutrophils # (Manual) (5591-3713) /uL Nucleated RBCs ( - 0) #/Diff Platelet Estimate RBC Morphology Poikilocytosis Anisocytosis PT (10.1-12.7) SECONDS INR (0.9-1.3) APTT (26-36) SECONDS Fibrinogen (211-428) mg/dL D-Dimer (<500) ng/ml Sodium 140 (137-145) mmol/L Potassium 3.6 (3.4-5.1) mmol/L Chloride 112 H (98-107) mmol/L Carbon Dioxide 12 L (22-32) mmol/L BUN 73 H (9-20) mg/dL Creatinine 2.84 H (0.66-1.25) mg/dL Estimated GFR 21 L (>60) mL/min BUN/Creatinine Ratio 25.7 H (6-22) Glucose 96 (80-110) mg/dL Lactate 5.2 H* (0.7-2.1) mmol/L Calcium 6.4 L* (8.4-10.2) mg/dL Magnesium (1.6-2.3) mg/dL Total Bilirubin 1.4 H (0.2-1.3) mg/dL AST 83 H (17-59) IU/L ALT 26 (<50) IU/L Alkaline Phosphatase 201 H (38-126) U/L Total Creatine Kinase (55-170) U/L CK-MB (CK-2) CK-MB (CK-2) Rel Index Troponin I 0.012 (0.01-0.034) ng/mL NT-Pro-B Natriuret Pep (<450) pg/mL Total Protein 4.6 L (6.3-8.2) g/dL Albumin 1.8 L (3.5-5.0) g/dL Globulin 2.8 (1.7-4.1) g/dL Albumin/Globulin Ratio 0.6 L (1.0-2.8) Lipase (23-300) U/L Procalcitonin (<0.5) ng/mL Urine Color Urine Appearance Urine pH (4.5-8.0) Ur Specific [place] (1.000-1.035) Urine Protein (Negative) Urine Glucose (UA) (Negative) g/dL Urine Ketones (NEGATIVE) Urine Occult Blood (Negative) Urine Nitrate (Negative) Urine Bilirubin (NEGATIVE) Urine Urobilinogen (0.2) E.U./dL Ur Leukocyte Esterase (NEGATIVE) Urine RBC (0-5/HPF) Urine WBC (0-5/HPF) Ur Squamous Epith Cells (0-5/HPF) Amorphous Sediment Urine Bacteria (None) Ur Culture Indicated? Chlamy pneumoniae PCR (Not Detect) Adenovirus (PCR) (Not Detect) B. pertussis DNA (PCR) (Not Detecte) B.parapertussis DNA PCR (Not Detecte) Coronavirus OC43 (PCR) (Not Detect) Coronavirus HKU1 (PCR) (Not Detect) Coronavirus 229E (PCR) (Not Detect) SARS-CoV-2 (PCR) (Not Detecte) Coronavirus NL63 (PCR) (Not Detect) Human Metapneumovir PCR (Not Detect) Influenza Type A (PCR) (Not Detect) Influenza Type B (PCR) (Not Detect) M. pneumoniae (PCR) (Not Detect) Parainfluenza 1 (PCR) (Not Detect) Parainfluenza 2 (PCR) (Not Detect) Parainfluenza 3 (PCR) (Not Detect) Parainfluenza 4 (PCR) (Not Detect) RSV (PCR) (Not Detect) Entero/Rhino (PCR) (Not Detect) Blood Type Antibody Screen 02/12/23 02/12/23 02/12/23 Range/Units 20:30 20:30 20:30 WBC 5.3 D (4.5-11.0) X10^3/uL RBC 3.44 L (4.5-5.9) X10^6/uL Hgb 9.0 L (13.5-17.5) g/dL Hct 27.5 L (41-53) % MCV 79.8 L D (80-100) fL MCH 26.1 (26-34) PG MCHC 32.7 (30-36) % RDW 19.0 H (11.6-14.8) % Plt Count 20 L* (150-400) X10^3/uL Neut % (Auto) 56.3 Lymph % (Auto) 35.7 Stephenson % (Auto) 7.4 Eos % (Auto) 0.3 L Baso % (Auto) 0.3 Neut # (Auto) 3000 (5816-8601) /uL Lymph # (Auto) 1900 Stephenson # (Auto) 400 Eos # (Auto) 0 (0-450) /uL Baso # (Auto) 0 Total Counted Seg Neutrophils % (38-70) % Lymphocytes % (Manual) (25-45) % Monocytes % (Manual) (2-11) % Metamyelocytes % (-0) % Neutrophils # (Manual) (5443-7623) /uL Nucleated RBCs ( - 0) #/Diff Platelet Estimate Decreased on smear RBC Morphology Normal morphology Poikilocytosis Anisocytosis PT (10.1-12.7) SECONDS INR (0.9-1.3) APTT (26-36) SECONDS Fibrinogen (211-428) mg/dL D-Dimer (<500) ng/ml Sodium 139 (137-145) mmol/L Potassium 2.9 L (3.4-5.1) mmol/L Chloride 110 H (98-107) mmol/L Carbon Dioxide 19 L (22-32) mmol/L BUN 75 H (9-20) mg/dL Creatinine 2.98 H (0.66-1.25) mg/dL Estimated GFR 20 L (>60) mL/min BUN/Creatinine Ratio 25.2 H (6-22) Glucose 145 H (80-110) mg/dL Lactate 2.2 H (0.7-2.1) mmol/L Calcium 6.3 L* (8.4-10.2) mg/dL Magnesium (1.6-2.3) mg/dL Total Bilirubin (0.2-1.3) mg/dL AST (17-59) IU/L ALT (<50) IU/L Alkaline Phosphatase (38-126) U/L Total Creatine Kinase (55-170) U/L CK-MB (CK-2) CK-MB (CK-2) Rel Index Troponin I (0.01-0.034) ng/mL NT-Pro-B Natriuret Pep (<450) pg/mL Total Protein (6.3-8.2) g/dL Albumin (3.5-5.0) g/dL Globulin (1.7-4.1) g/dL Albumin/Globulin Ratio (1.0-2.8) Lipase (23-300) U/L Procalcitonin (<0.5) ng/mL Urine Color Urine Appearance Urine pH (4.5-8.0) Ur Specific Bol[place]ar (1.000-1.035) Urine Protein (Negative) Urine Glucose (UA) (Negative) g/dL Urine Ketones (NEGATIVE) Urine Occult Blood (Negative) Urine Nitrate (Negative) Urine Bilirubin (NEGATIVE) Urine Urobilinogen (0.2) E.U./dL Ur Leukocyte Esterase (NEGATIVE) Urine RBC (0-5/HPF) Urine WBC (0-5/HPF) Ur Squamous Epith Cells (0-5/HPF) Amorphous Sediment Urine Bacteria (None) Ur Culture Indicated? Chlamy pneumoniae PCR (Not Detect) Adenovirus (PCR) (Not Detect) B. pertussis DNA (PCR) (Not Detecte) B.parapertussis DNA PCR (Not Detecte) Coronavirus OC43 (PCR) (Not Detect) Coronavirus HKU1 (PCR) (Not Detect) Coronavirus 229E (PCR) (Not Detect) SARS-CoV-2 (PCR) (Not Detecte) Coronavirus NL63 (PCR) (Not Detect) Human Metapneumovir PCR (Not Detect) Influenza Type A (PCR) (Not Detect) Influenza Type B (PCR) (Not Detect) M. pneumoniae (PCR) (Not Detect) Parainfluenza 1 (PCR) (Not Detect) Parainfluenza 2 (PCR) (Not Detect) Parainfluenza 3 (PCR) (Not Detect) Parainfluenza 4 (PCR) (Not Detect) RSV (PCR) (Not Detect) Entero/Rhino (PCR) (Not Detect) Blood Type Antibody Screen 02/12/23 02/12/23 02/12/23 Range/Units 20:30 20:30 21:50 WBC (4.5-11.0) X10^3/uL RBC (4.5-5.9) X10^6/uL Hgb (13.5-17.5) g/dL Hct (41-53) % MCV (80-100) fL MCH (26-34) PG MCHC (30-36) % RDW (11.6-14.8) % Plt Count (150-400) X10^3/uL Neut % (Auto) Lymph % (Auto) Stephenson % (Auto) Eos % (Auto) Baso % (Auto) Neut # (Auto) (9603-9561) /uL Lymph # (Auto) Stephenson # (Auto) Eos # (Auto) (0-450) /uL Baso # (Auto) Total Counted Seg Neutrophils % (38-70) % Lymphocytes % (Manual) (25-45) % Monocytes % (Manual) (2-11) % Metamyelocytes % (-0) % Neutrophils # (Manual) (7024-3996) /uL Nucleated RBCs ( - 0) #/Diff Platelet Estimate RBC Morphology Poikilocytosis Anisocytosis PT (10.1-12.7) SECONDS INR (0.9-1.3) APTT (26-36) SECONDS Fibrinogen 124 L (211-428) mg/dL D-Dimer 3751 H (<500) ng/ml Sodium (137-145) mmol/L Potassium (3.4-5.1) mmol/L Chloride (98-107) mmol/L Carbon Dioxide (22-32) mmol/L BUN (9-20) mg/dL Creatinine (0.66-1.25) mg/dL Estimated GFR (>60) mL/min BUN/Creatinine Ratio (6-22) Glucose (80-110) mg/dL Lactate (0.7-2.1) mmol/L Calcium (8.4-10.2) mg/dL Magnesium 2.1 (1.6-2.3) mg/dL Total Bilirubin (0.2-1.3) mg/dL AST (17-59) IU/L ALT (<50) IU/L Alkaline Phosphatase (38-126) U/L Total Creatine Kinase (55-170) U/L CK-MB (CK-2) CK-MB (CK-2) Rel Index Troponin I (0.01-0.034) ng/mL NT-Pro-B Natriuret Pep (<450) pg/mL Total Protein (6.3-8.2) g/dL Albumin (3.5-5.0) g/dL Globulin (1.7-4.1) g/dL Albumin/Globulin Ratio (1.0-2.8) Lipase (23-300) U/L Procalcitonin (<0.5) ng/mL Urine Color Urine Appearance Urine pH (4.5-8.0) Ur Specific Bolivar (1.000-1.035) Urine Protein (Negative) Urine Glucose (UA) (Negative) g/dL Urine Ketones (NEGATIVE) Urine Occult Blood (Negative) Urine Nitrate (Negative) Urine Bilirubin (NEGATIVE) Urine Urobilinogen (0.2) E.U./dL Ur Leukocyte Esterase (NEGATIVE) Urine RBC (0-5/HPF) Urine WBC (0-5/HPF) Ur Squamous Epith Cells (0-5/HPF) Amorphous Sediment Urine Bacteria (None) Ur Culture Indicated? Chlamy pneumoniae PCR (Not Detect) Adenovirus (PCR) (Not Detect) B. pertussis DNA (PCR) (Not Detecte) B.parapertussis DNA PCR (Not Detecte) Coronavirus OC43 (PCR) (Not Detect) Coronavirus HKU1 (PCR) (Not Detect) Coronavirus 229E (PCR) (Not Detect) SARS-CoV-2 (PCR) (Not Detecte) Coronavirus NL63 (PCR) (Not Detect) Human Metapneumovir PCR (Not Detect) Influenza Type A (PCR) (Not Detect) Influenza Type B (PCR) (Not Detect) M. pneumoniae (PCR) (Not Detect) Parainfluenza 1 (PCR) (Not Detect) Parainfluenza 2 (PCR) (Not Detect) Parainfluenza 3 (PCR) (Not Detect) Parainfluenza 4 (PCR) (Not Detect) RSV (PCR) (Not Detect) Entero/Rhino (PCR) (Not Detect) Blood Type B Positive Antibody Screen Negative 02/12/23 Range/Units 21:50 WBC (4.5-11.0) X10^3/uL RBC (4.5-5.9) X10^6/uL Hgb (13.5-17.5) g/dL Hct (41-53) % MCV (80-100) fL MCH (26-34) PG MCHC (30-36) % RDW (11.6-14.8) % Plt Count (150-400) X10^3/uL Neut % (Auto) Lymph % (Auto) Stephenson % (Auto) Eos % (Auto) Baso % (Auto) Neut # (Auto) (9026-8191) /uL Lymph # (Auto) Stephenson # (Auto) Eos # (Auto) (0-450) /uL Baso # (Auto) Total Counted Seg Neutrophils % (38-70) % Lymphocytes % (Manual) (25-45) % Monocytes % (Manual) (2-11) % Metamyelocytes % (-0) % Neutrophils # (Manual) (2194-7286) /uL Nucleated RBCs ( - 0) #/Diff Platelet Estimate RBC Morphology Poikilocytosis Anisocytosis PT (10.1-12.7) SECONDS INR (0.9-1.3) APTT (26-36) SECONDS Fibrinogen (211-428) mg/dL D-Dimer (<500) ng/ml Sodium (137-145) mmol/L Potassium (3.4-5.1) mmol/L Chloride (98-107) mmol/L Carbon Dioxide (22-32) mmol/L BUN (9-20) mg/dL Creatinine (0.66-1.25) mg/dL Estimated GFR (>60) mL/min BUN/Creatinine Ratio (6-22) Glucose (80-110) mg/dL Lactate 2.4 H (0.7-2.1) mmol/L Calcium (8.4-10.2) mg/dL Magnesium (1.6-2.3) mg/dL Total Bilirubin (0.2-1.3) mg/dL AST (17-59) IU/L ALT (<50) IU/L Alkaline Phosphatase (38-126) U/L Total Creatine Kinase (55-170) U/L CK-MB (CK-2) CK-MB (CK-2) Rel Index Troponin I (0.01-0.034) ng/mL NT-Pro-B Natriuret Pep (<450) pg/mL Total Protein (6.3-8.2) g/dL Albumin (3.5-5.0) g/dL Globulin (1.7-4.1) g/dL Albumin/Globulin Ratio (1.0-2.8) Lipase (23-300) U/L Procalcitonin (<0.5) ng/mL Urine Color Urine Appearance Urine pH (4.5-8.0) Ur Specific [place] (1.000-1.035) Urine Protein (Negative) Urine Glucose (UA) (Negative) g/dL Urine Ketones (NEGATIVE) Urine Occult Blood (Negative) Urine Nitrate (Negative) Urine Bilirubin (NEGATIVE) Urine Urobilinogen (0.2) E.U./dL Ur Leukocyte Esterase (NEGATIVE) Urine RBC (0-5/HPF) Urine WBC (0-5/HPF) Ur Squamous Epith Cells (0-5/HPF) Amorphous Sediment Urine Bacteria (None) Ur Culture Indicated? Chlamy pneumoniae PCR (Not Detect) Adenovirus (PCR) (Not Detect) B. pertussis DNA (PCR) (Not Detecte) B.parapertussis DNA PCR (Not Detecte) Coronavirus OC43 (PCR) (Not Detect) Coronavirus HKU1 (PCR) (Not Detect) Coronavirus 229E (PCR) (Not Detect) SARS-CoV-2 (PCR) (Not Detecte) Coronavirus NL63 (PCR) (Not Detect) Human Metapneumovir PCR (Not Detect) Influenza Type A (PCR) (Not Detect) Influenza Type B (PCR) (Not Detect) M. pneumoniae (PCR) (Not Detect) Parainfluenza 1 (PCR) (Not Detect) Parainfluenza 2 (PCR) (Not Detect) Parainfluenza 3 (PCR) (Not Detect) Parainfluenza 4 (PCR) (Not Detect) RSV (PCR) (Not Detect) Entero/Rhino (PCR) (Not Detect) Blood Type Antibody Screen Point of Care Testing Glucose POC 119 ECG Data Interpretation: Atrial fibrillation Ventricular rate is 71 QRS 156 milliseconds Left axis deviation No ST T wave changes MDM Narrative Medical decision making narrative: Patient brought in by ambulance from home for complaints of generalized weakness weight loss and fall. Patient fell today trying to go to the bathroom. He was home alone. Family return to find him on the floor. Complains of right hip pain. Patient has had a 40 lb weight loss in the past 2 months. Primary care started seeing him this month. CT imaging blood work done on February 08. CT imaging chest abdomen pelvis concerning for lymphoma. Laboratory studies concerning for thrombocytopenia. Patient has had very little oral intake for the past 2 weeks. Feeling weak and tired and dehydrated. Has decreased urine output. Denies any chest pain or dyspnea After history and exam CT head CT cervical spine CT chest abdomen pelvis EKG troponin lactic acid procalcitonin urinalysis IV fluids MDM CC: Weakness/fall Complicating co-morbidities: Likely lymphoma Data collected from: Patient daughter Medical records reviewed: CT imaging from February 08, 2023 done here Differential considered: Includes but not limited to lymphoma/kidney failure/dehydration/pelvic fracture/sepsis Exam documented above, pertinent findings include: Emaciated appearing Lab Test results independently reviewed as above. Pertinent findings: WBC 11.0 hemoglobin 11.1 platelets 23 INR 1.8 Sodium 142 potassium 4.1 bicarb 8 BUN 67 creatinine 3.18 GFR 18 Lactic acid 10.8 AST 104 ALT 46 total bilirubin 1.7 calcium 7.2 BNP 5770 Procalcitonin 3.05 Independently reviewed EKG wide QRS rhythm. Right bundle-branch rate 117 Imaging studies independently reviewed: CT head no acute finding CT cervical spine no acute finding CT abdomen pelvis and chest no acute fine Chest x-ray and right hip x-ray no acute finding Consultations: 3:40 p.m.. Spoke with [facility] mop maker, Dr. Bal. Reviewed laboratory studies and imaging. At this time would continue normal saline hydration with sodium bicarbonate. ABG can be done when patient arrives at their facility. Will not currency exchange specialist here. 3:50 p.m.. Spoke with Oncology, Dr. Cosby, no additional labs or imaging jd cated. He will see patient when admitted to [facility] 4:[address] Ray, hospitalist here at [facility], patient needs to be transferred for higher level of care Treatments: Normal saline bicarb Zosyn Tylenol Re-evaluations: 4:30 p.m.. Updated patient results. C-collar has been cleared clinically. CT cervical spine is unremarkable. Patient and family do understand need to transfer for multiple reasons including Oncology as well as Nephrology the services we do not have here. 4:35 p.m.. Spoke with [facility] Oncology Dr. Bradley [address] [place] [address], he will see patient in consult if admitted there. 5:24 p.m.. I spoke with [address], Dr. Garcia, he will accept patient. Discussion: Appropriate for transfer. I did review with patient and family. We do not have Nephrology or oncology. Patient needs higher level of care. Fluid hydration has been started. Antibiotics as well. Diagnosis: Acute renal failure/failure to thrive Dr merritt: Received turned over. Reviewed patient's history and physical and workup up to this point. Patient has been accepted by hospitalist at [facility] system however we are still waiting for bed assignment. In the meantime patient did have an episode of hypothermia. He was placed under a [facility] Hugger. Repeat labs show that his lactate is improving. His potassium has now less than 3. Replacement has been started. He does have an elevated D-dimer and a low ferritin. He is also thrombocytopenic. I have ordered platelets however these have to be delivered from [place] and will take approximately 4 hours. He does not have any signs of active bleeding. I do suspect that his thrombocytopenia is related to his enlarged spleen although DIC is a consideration. Patient has not had a mean arterial pressure less than 65. Continues to get antibiotics. Kidney function improved with fluids. We did receive word from [facility] that there is now a bed available. Transport has been arranged. Patient is stable for transport. 0145: Patient's platelets did arrive as the transport team was preparing to take the patient. We will start the platelet transfusion and they can continue the platelets during transport. Critical Care Time <Nathan Chi MD - Last Filed: 02/13/23 07:21> Critical Care Time Attestation: Critical Care Time 35 minutes: Critical care time is separate from other billable procedures. This critical care time includes consultation with family and other consulting doctors, review of records, and interpretation of data from labs, EKGs, imaging, etc. <Pietro Merritt DO - Last Filed: 02/13/23 01:47> Critical Care Time Critical Care Time: Yes Total Critical Care Time: 35 Discharge Plan Departure Patient Disposition: [facility] Clinical Impression: Acute renal failure, Hypokalemia, Thrombocytopenia, Acidosis, Hypocalcemia Prescriptions: No Action losartan 50 mg Tablet 50 mg PO DAILY felodipine 2.5 mg Tablet Extended Release 24 Hr 2.5 mg PO BID simvastatin [Zocor] 10 mg Tablet 5 mg PO QPM calcium carbonate-vitamin D3 [Calcium 600 with Vitamin D3] 600 mg(1,500mg) - 400 unit Capsule See Rx Instructions .ROUTE .COMPLEX Rx Instructions: 1 tab orally Referrals: Terrance Richey MD [Primary Care Provider] -
[2023-02-12 15:22] LABS: Appearance Urine UA CLEAR; Bilirubin Urine UA NEGATIVE (NEGATIVE); Color Urine UA YELLOW; Glucose Urine UA NEGATIVE (Negative); Ketones Urine UA NEGATIVE (NEGATIVE); Leukocyte Esterase Urine UA NEGATIVE (NEGATIVE); Nitrite Urine UA NEGATIVE (Negative); Occult Blood Urine UA NEGATIVE (Negative); Protein Urine UA TRACE (Negative); Urobilinogen Urine UA 0.2 E.U./dL (0.2)
[2023-02-12] MEDS: PIPERACILLIN/TAZO 4.5 GM in SODIUM CHLORIDE 0.9% 100 ML IV (15:26)
[2023-02-12] MEDS: ONDANSETRON 4 MG/2 ML INJ IV (15:26)
[2023-02-12] MEDS: SODIUM CHLORIDE 0.9% 1,000 ML 1000 ML IV (15:27)
[2023-02-12 15:29] LABS: Bacteria Urine Few (2-10); RBC Urine 0-1/HPF (0-5/HPF); WBC Urine 0-1/HPF (0-5/HPF)
[2023-02-12 15:30] LABS: Amorphous Sediment Urine 1+; Culture Indicated Urine Cult Not Indicated; Squamous Epithelial Cell Urine 0-1 /HPF (0-5/HPF)
[2023-02-12] MEDS: ACETAMINOPHEN 325 MG TABLET 975 MG PO (15:32)
[2023-02-12] MEDS: SODIUM BICARB 8.4% VIAL 100 MEQ in DEXTROSE 5% WATER 1,000 ML 150 MEQ IV (15:59)
[2023-02-12 16:15] LABS: Reflexed Lactate in 2 Hours Y
[2023-02-12 16:34] LABS: Adenovirus Not Detected (Not Detect); B. parapertussis Not Detected (Not Detecte); Bordetella pertussis Not Detected (Not Detecte); Chlamydophila pneumoniae Not Detected (Not Detect); Coronavirus 229E Not Detected (Not Detect); Coronavirus HKU1 Not Detected (Not Detect); Coronavirus NL 63 Not Detected (Not Detect); Coronavirus OC43 Not Detected (Not Detect); Human Metapneumovirus Not Detected (Not Detect); Human Rhinovirus/Enterovirus Not Detected (Not Detect); Influenza A Not Detected (Not Detect); Influenza B Not Detected (Not Detect); Mycoplasma pneumoniae Not Detected (Not Detect); Parainfluenza Virus 1 Not Detected (Not Detect); Parainfluenza Virus 2 Not Detected (Not Detect); Parainfluenza Virus 3 Not Detected (Not Detect); Parainfluenza Virus 4 Not Detected (Not Detect); Respiratory Syncytial Virus Not Detected (Not Detect); SARS- CoV-2 Not Detected (Not Detecte)
[2023-02-12 17:09] LABS: Alanine Aminotransferase 26 IU/L (<50); Albumin 1.8 g/dL (3.5-5.0); Albumin Globulin Ratio 0.6 (1.0-2.8); Alkaline Phosphatase 201 U/L (38-126); Aspartate Aminotransferase 83 IU/L (17-59); BUN Creatinine Ratio 25.7 (6-22); Bilirubin Total 1.4 mg/dL (0.2-1.3); Blood Urea Nitrogen 73 mg/dL (9-20); Carbon Dioxide 12 mmol/L (22-32); Chloride 112 mmol/L (98-107); Estimated Glomerular Filt Rate 21 mL/min (>60); Globulin 2.8 g/dL (1.7-4.1); Glucose 96 mg/dL (80-110); Potassium 3.6 mmol/L (3.4-5.1); Sodium 140 mmol/L (137-145); Total Protein 4.6 g/dL (6.3-8.2)
[2023-02-12 17:19] LABS: HEMOLYSIS 21 (0-50)
[2023-02-12 17:23] LABS: Calcium 6.4 mg/dL (8.4-10.2)
[2023-02-12 17:24] LABS: Lactate 2HR (Lactic Acid Rflx) 5.2 mmol/L (0.7-2.1)
[2023-02-12 17:44] LABS: Troponin I 0.012 ng/mL (0.01-0.034)
--- NOTE | 2023-02-12 20:21 | PC.NURSE ---
[facility]ini Thomas applied. Pt, spouse and DIL informed that bed won't be available until tomorrow.
[2023-02-12 20:48] LABS: Add Manual Diff / Slide Review NO; Basophils Absolute Auto 0 /uL (0-100); Basophils Percent Auto 0.3 % (0-2); Eosinophils Absolute Auto 0 /uL (0-450); Eosinophils Percent Auto 0.3 % (2-4); Hematocrit 27.5 % (41-53); Lymphocytes Absolute Auto 1900 /uL (1100-4500); Lymphocytes Percent Auto 35.7 % (25-40); Mean Corpuscular HGB Conc 32.7 % (30-36); Mean Corpuscular Hemoglobin 26.1 PG (26-34); Mean Corpuscular Volume 79.8 fL (80-100); Monocytes Absolute Auto 400 /uL (0-900); Monocytes Percent Auto 7.4 % (3-14); Neutrophils Absolute Auto 3000 /uL (1500-7000); Neutrophils Percent Auto 56.3 % (50-75); Red Blood Cell Count 3.44 X10^6/uL (4.5-5.9); White Blood Cell Count 5.3 X10^3/uL (4.5-11.0)
[2023-02-12 21:02] LABS: Platelet Count 20 X10^3/uL (150-400)
[2023-02-12 21:06] LABS: BUN Creatinine Ratio 25.2 (6-22); Blood Urea Nitrogen 75 mg/dL (9-20); Carbon Dioxide 19 mmol/L (22-32); Chloride 110 mmol/L (98-107); Estimated Glomerular Filt Rate 20 mL/min (>60); Glucose 145 mg/dL (80-110); HEMOLYSIS < 15 (0-50); Lactate (Lactic Acid) 2.2 mmol/L (0.7-2.1); Potassium 2.9 mmol/L (3.4-5.1); Sodium 139 mmol/L (137-145)
[2023-02-12 21:07] LABS: Platelet Estimate Decreased on smear; RBC Morphology Normal Morphology
[2023-02-12 21:11] LABS: Calcium 6.3 mg/dL (8.4-10.2)
[2023-02-12] MEDS: SODIUM CHLORIDE 0.9% 500 ML IV (21:29)
[2023-02-12] MEDS: CALCIUM GLUCONATE 4.65 MEQ in SODIUM CHLORIDE 0.9% 50 ML 180 MEQ IV (21:33)
[2023-02-12 21:39] LABS: Magnesium 2.1 mg/dL (1.6-2.3)
[2023-02-12] MEDS: POTASSIUM CHLORIDE IN WATER 10 MEQ/100 ML PIGGYBACK 100 MEQ IV ×2 (21:44→22:59)
--- NOTE | 2023-02-12 22:00 | PC.NURSE ---
MATE CHIEF note Lena () would like to be notified when patient boards ambulance for [place]. 's contact number is or .
--- NOTE | 2023-02-12 22:04 | PC.NURSE ---
PHARMACIST IN CHARGE OWNER note regarding transfer Spoke to Nakul from [facility] at 20:07. She said no bed are available yet due to short staffing. Bed would most likely be available by tomorrow instead.
[2023-02-12] MEDS: PIPERACILLIN/TAZO 3.375 GM in SODIUM CHLORIDE 0.9% 100 ML IV (22:06)
[2023-02-12 22:17] LABS: Fibrinogen 124 mg/dL (211-428)
[2023-02-12 22:18] LABS: D Dimer 3751 ng/ml (<500)
--- NOTE | 2023-02-12 22:27 | PC.NURSE ---
Pt sleeping, rouses to gentle physical stimulus. A&Ox4 on questioning.
[2023-02-12 22:38] LABS: Reflexed Lactate in 2 Hours Y
[2023-02-12 22:54] LABS: Lactate 2HR (Lactic Acid Rflx) 2.4 mmol/L (0.7-2.1)
--- NOTE | 2023-02-12 23:23 | PC.NURSE ---
Called Amira to notify her that pt will be going to [facility]
--- NOTE | 2023-02-12 23:46 | PC.NURSE ---
Called report to MIKAL Mckinney at [facility]. Gave safe handoff report to MIKAL Mckay. Pt is sleeping.
[2023-02-13] VITALS (10 sets, daily range): BP systolic 80–108; BP diastolic 44–53; PULSE 74–99; RESP 25–32; TEMP 34.9–35.4; O2SAT 92–98
[2023-02-13] MEDS: POTASSIUM CHLORIDE IN WATER 10 MEQ/100 ML PIGGYBACK 100 MEQ IV ×2 (00:03→00:57)
[2023-02-13] MEDS: SODIUM CHLORIDE 0.9% 1,000 ML 500 ML IV (00:53)
--- NOTE | 2023-02-13 01:59 | PC.NURSE ---
platlets were checked and hung to infuse, per [facility] RN Mel, RN
[2023-02-14 20:42] LABS: Acinetobacter calcoa-baumannii Not Detected (Not Detect); Enterococcus faecalis Not Detected (Not Detect); Enterococcus faecium Not Detected (Not Detect); Listeria monocytogenes Not Detected (Not Detect); Staphylococcus epidermidis Not Detected (Not Detect); Staphylococcus lugdunensis Not Detected (Not Detect); Staphylococcus species Not Detected (Not Detect); Streptococcus agalactiae (Gr B Not Detected (Not Detect); Streptococcus pneumonia Not Detected (Not Detect); Streptococcus pyogenes (Gr A) Not Detected (Not Detect); Streptococcus species Not Detected (Not Detect)
[2023-02-14 20:43] LABS: Bacteroides fragilis Not Detected (Not Detect); Candida albicans Not Detected (Not Detect); Candida auris Not Detected (Not Detect); Candida glabrata Not Detected (Not Detect); Candida krusei Not Detected (Not Detect); Candida parapsilosis Not Detected (Not Detect); Candida tropicalis Not Detected (Not Detect); Cryptococcus neoformans/gatti Not Detected (Not Detect); Enterobacter cloacae complex Not Detected (Not Detect); Enterobacterales Not Detected (Not Detect); Haemophilus influenzae Not Detected (Not Detect); Klebsiella aerogenes Not Detected (Not Detect); Neisseria meningitidis Not Detected (Not Detect); Proteus species Not Detected (Not Detect); Pseudomonas aeruginosa Not Detected (Not Detect); Salmonella species Not Detected (Not Detect); Serratia marcescens Not Detected (Not Detect); Stenotrophomonas maltophilia Not Detected (Not Detect)
== END 2023-02-13 01:59 | disposition short-term general hospital (02) ==
PROVIDERS: Emergency Medicine; Emergency Provider Emergency Medicine; PCP Family Medicine
DX: M25.551 Pain in right hip (principal); N17.9 Acute kidney failure, unspecified; E87.6 Hypokalemia; E83.51 Hypocalcemia; E87.20 Acidosis, unspecified; D69.6 Thrombocytopenia, unspecified; Z20.822 Contact with and (suspected) exposure to COVID-19; W18.30XA Fall on same level, unspecified, initial encounter; R53.1 Weakness
CPT/HCPCS: 36415; 36430; 36569; 70450; 71045; 71250; 72125; 73502; 74176; 80048; 80053; 81001; 82550; 82962; 83605; 83690; 83735; 83880; 84145; 84484; 85007; 85025; 85379; 85384; 85610; 85730; 86850; 86900; 86901; 87040; 87154; 87633; 93005; 96365; 96366; 96367; 96368; 96375; 99285; J0612; J2405; J2543; P9035